=== PATIENT | female | born 1930 | race Caucasian/White ===

== ENCOUNTER 2016-08-03 03:23 | Observation (INO) ==
[2016-08-03] MEDS ORDERED: 0.9 % Sodium Chloride 1,000 ML IVC ONE (03:34)
[2016-08-03 04:08] LABS: Basophils % 0.3 %; Eosinophils % 0.1 %; Hematocrit 34.7 % (35.3-44.9); Hemoglobin 11.6 g/dL (11.5-15.4); Immature Granulocytes % 0.4 % (0-4); Mean Corpuscular HGB Conc 33.4 g/dL (31.6-35.5); Mean Corpuscular Hemoglobin 30.2 pg (28.0-33.3); Mean Corpuscular Volume 90.4 fL (83.0-100.0); Mean Platelet Volume 10.1 fL (9.4-12.4); Monocytes # 0.7 K/mcL (0.0-1.3); Monocytes % 9.2 %; Neutrophils # 5.9 K/mcL (1.6-8.9); Platelet Count 159 K/mcL (140-400); Red Blood Count 3.84 M/mcL (3.82-4.97); Red Cell Distribution Width 14.6 % (11.5-14.5)
[2016-08-03 04:13] LABS: INR 1.1; Prothrombin Time 11.4 Seconds (9.4-12.1)
--- NOTE | 2016-08-03 04:14 | Emergency Department Note ---
Disposition Clinical Impression: Lower gastrointestinal hemorrhage, Colitis, acute Disposition: Admitted As Inpatient Condition: Good Forms: ED Satisfaction Letter GI Bleed HPI - General Chief complaint: ED GI Bleed Stated complaint: rectal bleeding Time Seen by Provider: 08/03/16 03:29 Source: patient Mode of arrival: private vehicle Limitations: no limitations Nursing Notes Reviewed: Yes Vital Signs Reviewed: Yes - History of Present Illness Pt Subjective Complaint: gross hematochezia Onset (ago): hour(s) (since approximately 7 pm) Consistency: constant Severity: mild, moderate Improves with: rest Worsens with: movement Context: rectal trauma ("had a very large, very hard, painful bowel movement this evening and then the bleeding started.") Associated symptoms: Reports: abdominal pain. Denies: nausea, vomiting, epistaxis, fever, chills, headaches, loss of appetite, malaise, easy bruising, rash, other bleeding source, shortness of breath, syncope/near-syncope, weakness - Related Data Previous Rx's Medication Instructions Recorded Ibuprofen [Motrin] 800 mg PO Q8HR #30 tablet 03/09/16 Allergies Allergy/AdvReac Type Severity Reaction Status Date / Time Penicillins Allergy Hives Verified 08/03/16 03:24 All systems ED: reviewed and negative except as stated. Constitutional: Denies: fever, chills, weakness Cardiovascular: Denies: chest pain, palpitations, dyspnea on exertion Gastrointestinal: Reports: as per HPI, abdominal pain, constipation ("all week, until this evening" Was given Rx for Lactulose last Thursday. Used it daily all week.). Denies: nausea, vomiting, diarrhea Genitourinary: Reports: frequency. Denies: urgency, dysuria, hematuria Musculoskeletal: Denies: back pain Integumentary: Denies: rash Neurological: Denies: headache, weakness, numbness, paresthesias Hematological/Lymphatic: Denies: easy bleeding, easy bruising Past Medical History - Past Medical History Attestation: Yes The following information was validated with the patient. Source: patient Medical history: Reports: hyperlipidemia, hypertension, other Surgical history: Reports: hip replacement Psychiatric history: Reports: no psych history - Social History Smoking Status: Never smoker Smokeless Tobacco Status: No Alcohol use: Reports: none Drug use: Reports: none Physical Exam - General Limitations: no limitations General appearance: alert, in no apparent distress - Head Head exam: atraumatic, normocephalic, normal inspection - Eye Eye exam: Present: normal appearance, PERRL. Absent: scleral icterus, conjunctival injection, periorbital swelling - ENT ENT exam: mucous membranes moist - Neck Neck exam: Present: normal inspection, trachea midline - Chest Chest inspection: Present: normal inspection - Respiratory Respiratory exam: Present: normal lung sounds bilaterally. Absent: respiratory distress - Cardiovascular Cardiovascular exam: Present: regular rate - Abdominal Exam Abdominal exam: Present: soft, tenderness, hyperactive bowel sounds. Absent: distention, guarding, rebound, rigidity, organomegaly, mass, pulsatile mass Abdominal tenderness: Present: LLQ (el-umbilical), epigastrium - Rectal Exam Computer Assistant present during exam: Yes Rectal exam: Present: hemorrhoids (one, small non-tender, external hemorrhoid), other (BRBPR, no stool) - Extremities Exam Extremities exam: Present: normal inspection, full ROM. Absent: pedal edema - Expanded Lower Extremity Exam Gait: observed and normal - Neurological Exam Neurological exam: Present: alert, oriented X3, CN II-XII intact, normal gait - Psychiatric Psychiatric exam: Present: normal affect, normal mood - Skin Skin exam: Present: warm, dry, intact, normal color Course Course Narrative: patient presents for evaluation of rectal bleeding that began around 19:00 Thursday evening after having a bowel movement. She had been constipated all week and took Lactulose every day. She describes the bowel movement as painful, hard, and large. She thought that the bleeding would stop so she waited a while before coming to the hospital. She states that she was up moving around a lot, doing laundry and other things. When she get ready to go to bed she realized that she was still bleeding so she decided to come in. She has some abd pain and tenderness - primarily el-umbilical. Vitals are good - BP a little high, O2 sat 94% on room air. Will check labs and get CT of abdomen / pelvis. Patient not on any anticoagulants. CT has been read by Radiologist as Colitis. Inflammatory or infectious felt to be more likely than ischemic. Clinically she does not appear to have ischemic colitis. She is resting comfortably, declines pain meds and is minimally tender. She will be admitted for further evaluation. Hospitalist paged. Patient accepted for admission. Cipro and Flagyl recommended. Vital Signs Temperature 97.6 F 08/03/16 03:24 Pulse Rate 98 08/03/16 03:24 Respiratory Rate 20 08/03/16 03:24 Blood Pressure 160/98 08/03/16 03:24 O2 Sat by Pulse Oximetry 94 L 08/03/16 03:24 Temperature 97.6 F 08/03/16 03:24 Pulse Rate 98 08/03/16 03:24 Respiratory Rate 20 08/03/16 03:24 Blood Pressure 160/98 08/03/16 03:24 O2 Sat by Pulse Oximetry 94 L 08/03/16 03:24 Oxygen Delivery Oxygen Delivery Room Air GI Bleed - Medical Records Medical records reviewed: Yes I reviewed the patient's medical records. - Lab Data Lab results reviewed: Yes I reviewed the patient's lab results. Lab results narrative: Laboratory Last Values WBC 7.7 K/mcL (4.3-11.1) 08/03/16 03:45 RBC 3.84 M/mcL (3.82-4.97) 08/03/16 03:45 Hgb 11.6 g/dL (11.5-15.4) 08/03/16 03:45 Hct 34.7 % (35.3-44.9) L 08/03/16 03:45 MCV 90.4 fL (83.0-100.0) 08/03/16 03:45 MCH 30.2 pg (28.0-33.3) 08/03/16 03:45 MCHC 33.4 g/dL (31.6-35.5) 08/03/16 03:45 RDW 14.6 % (11.5-14.5) H 08/03/16 03:45 Plt Count 159 K/mcL (140-400) 08/03/16 03:45 MPV 10.1 fL (9.4-12.4) 08/03/16 03:45 Immature Gran % 0.4 % (0-4) 08/03/16 03:45 Seg Neutrophils % 77.0 % 08/03/16 03:45 Lymphocytes % 13.0 % 08/03/16 03:45 Monocytes % 9.2 % 08/03/16 03:45 Eosinophils % 0.1 % 08/03/16 03:45 Basophils % 0.3 % 08/03/16 03:45 Neutrophils # 5.9 K/mcL (1.6-8.9) 08/03/16 03:45 Lymphocytes # 1.0 K/mcL (0.6-4.6) 08/03/16 03:45 Monocytes # 0.7 K/mcL (0.0-1.3) 08/03/16 03:45 Eosinophils # 0.0 K/mcL (0.0-0.6) 08/03/16 03:45 Basophils # 0.0 K/mcL (0.0-0.2) 08/03/16 03:45 PT 11.4 Seconds (9.4-12.1) 08/03/16 03:45 INR 1.1 08/03/16 03:45 APTT 26.9 Seconds (26.0-36.0) 08/03/16 03:45 Sodium 138 mEq/L (136-145) 08/03/16 03:45 Potassium 3.4 mEq/L (3.5-4.5) L 08/03/16 03:45 Chloride 102 mEq/L (98-109) 08/03/16 03:45 Carbon Dioxide 23 mEq/L (19-29) 08/03/16 03:45 BUN 19 mg/dL (7-20) 08/03/16 03:45 Creatinine 1.07 mg/dL (0.57-1.11) 08/03/16 03:45 Est GFR ( Amer) 59 (> 60) L 08/03/16 03:45 Est GFR (Non-Af Amer) 48 (> 60) L 08/03/16 03:45 BUN/Creatinine Ratio 18 (6-26) 08/03/16 03:45 Glucose 124 mg/dL (70-99) H 08/03/16 03:45 Calculated Osmolality 290 (280-300) 08/03/16 03:45 Calcium 9.6 mg/dL (8.6-10.8) 08/03/16 03:45 Total Bilirubin 0.6 mg/dL (0.2-1.2) 08/03/16 03:45 AST 19 Units/L (5-34) 08/03/16 03:45 ALT 9 Units/L (0-55) 08/03/16 03:45 Alkaline Phosphatase 70 Units/L (38-126) 08/03/16 03:45 Serum Total Protein 6.7 g/dL (6.0-8.3) 08/03/16 03:45 Albumin 3.7 g/dL (3.5-5.0) 08/03/16 03:45 Globulin 3.0 g/dL (2.4-3.5) 08/03/16 03:45 Albumin/Globulin Ratio 1.2 (1.1-2.2) 08/03/16 03:45 Blood Type O POSITIVE 08/03/16 03:45 Antibody Screen NEGATIVE 08/03/16 03:45 Result diagrams: 08/03/16 03:45 Lab Results 08/03/16 Range/Units 03:45 WBC 7.7 (4.3-11.1) K/mcL RBC 3.84 (3.82-4.97) M/mcL Hgb 11.6 (11.5-15.4) g/dL Hct 34.7 L (35.3-44.9) % MCV 90.4 (83.0-100.0) fL MCH 30.2 (28.0-33.3) pg MCHC 33.4 (31.6-35.5) g/dL RDW 14.6 H (11.5-14.5) % Plt Count 159 (140-400) K/mcL MPV 10.1 (9.4-12.4) fL Immature Gran % 0.4 (0-4) % Seg Neutrophils % 77.0 % Lymphocytes % 13.0 % Monocytes % 9.2 % Eosinophils % 0.1 % Basophils % 0.3 % Neutrophils # 5.9 (1.6-8.9) K/mcL Lymphocytes # 1.0 (0.6-4.6) K/mcL Monocytes # 0.7 (0.0-1.3) K/mcL Eosinophils # 0.0 (0.0-0.6) K/mcL Basophils # 0.0 (0.0-0.2) K/mcL - Radiology Data Radiology results reviewed: Yes I reviewed the patient's radiology results. Abdomen/Pelvis CT 08/03/16 04:12 IMPRESSION: 1. Severe mucosal thickening involving a long segment of left colon, evidence of colitis. Infectious or inflammatory etiologies would be favored. Ischemic colitis unlikely given lack of significant atherosclerotic change. 2. Advanced diverticulosis in the sigmoid colon with no focal inflammation to suggest diverticulitis. D/ / Jacek Schaefer MD / Jacek Schaefer MD Interpreting Provider: Jacek Schaefer MD
[2016-08-03 04:16] LABS: Activated Partial Thrombo Time 26.9 Seconds (26.0-36.0)
[2016-08-03 04:22] LABS: Albumin 3.7 g/dL (3.5-5.0); Albumin/Globulin Ratio 1.2 (1.1-2.2); Bilirubin,Total 0.6 mg/dL (0.2-1.2); Calcium 9.6 mg/dL (8.6-10.8); Potassium 3.4 mEq/L (3.5-4.5); Total Protein 6.7 g/dL (6.0-8.3)
--- NOTE | 2016-08-03 04:36 | Emergency Department Note ---
Disposition Clinical Impression: Lower gastrointestinal hemorrhage, Colitis, acute Disposition: Admitted As Inpatient General Adult HPI - General Chief complaint: ED GI Bleed Stated complaint: rectal bleeding Time Seen by Provider: 08/03/16 03:29 Source: patient Mode of arrival: private vehicle Limitations: no limitations - History of Present Illness Pain Scale: 3 - Related Data Home Medications Medication Instructions Recorded Confirmed Aspirin [Lo-Dose Aspirin EC] 81 mg PO DAILY 08/03/16 08/03/16 Cholecalciferol (D-3) [Vitamin D] 1,000 unit PO DAILY 08/03/16 08/03/16 Ibuprofen [Motrin] 800 mg PO Q8HR PRN 08/03/16 08/03/16 Lisinopril-HCTZ 20-12.5 [Prinzide 1 each PO DAILY 08/03/16 08/03/16 20-12.5] Simvastatin [Zocor] 20 mg PO DAILY 08/03/16 08/03/16 Vit A/C/E AC/Znox/Cupric Oxide 1 each PO DAILY 08/03/16 08/03/16 [Eye Vitamin-Minerals Tablet] Allergies Allergy/AdvReac Type Severity Reaction Status Date / Time Penicillins Allergy Hives Verified 08/03/16 03:24 Constitutional: Denies: fever, chills, weakness Cardiovascular: Denies: chest pain, palpitations, dyspnea on exertion Gastrointestinal: Reports: as per HPI, abdominal pain, constipation ("all week, until this evening" Was given Rx for Lactulose last Thursday. Used it daily all week.). Denies: nausea, vomiting, diarrhea Genitourinary: Reports: frequency. Denies: urgency, dysuria, hematuria Musculoskeletal: Denies: back pain Integumentary: Denies: rash Neurological: Denies: headache, weakness, numbness, paresthesias Hematological/Lymphatic: Denies: easy bleeding, easy bruising Past Medical History - Past Medical History Medical history: Reports: hyperlipidemia, hypertension, other Surgical history: Reports: hip replacement Psychiatric history: Reports: no psych history - Social History Smoking Status: Never smoker Smokeless Tobacco Status: No Alcohol use: Reports: none Drug use: Reports: none Physical Exam - General Limitations: no limitations General appearance: alert Course Vital Signs Temperature 97.6 F 08/03/16 03:24 Pulse Rate 98 08/03/16 03:24 Respiratory Rate 20 08/03/16 03:24 Blood Pressure 160/98 08/03/16 03:24 O2 Sat by Pulse Oximetry 94 L 08/03/16 03:24 Temperature 97.6 F 08/03/16 03:24 Pulse Rate 98 08/03/16 03:24 Respiratory Rate 16 08/03/16 06:29 Blood Pressure 148/76 08/03/16 06:29 O2 Sat by Pulse Oximetry 94 L 08/03/16 03:24 Oxygen Delivery Oxygen Delivery Room Air Medical Decision Making - Lab Data Result diagrams: 08/03/16 03:45 08/03/16 03:45 Lab Results 08/03/16 08/03/16 08/03/16 Range/Units 03:45 03:45 03:45 WBC 7.7 (4.3-11.1) K/mcL RBC 3.84 (3.82-4.97) M/mcL Hgb 11.6 (11.5-15.4) g/dL Hct 34.7 L (35.3-44.9) % MCV 90.4 (83.0-100.0) fL MCH 30.2 (28.0-33.3) pg MCHC 33.4 (31.6-35.5) g/dL RDW 14.6 H (11.5-14.5) % Plt Count 159 (140-400) K/mcL MPV 10.1 (9.4-12.4) fL Immature Gran % 0.4 (0-4) % Seg Neutrophils % 77.0 % Lymphocytes % 13.0 % Monocytes % 9.2 % Eosinophils % 0.1 % Basophils % 0.3 % Neutrophils # 5.9 (1.6-8.9) K/mcL Lymphocytes # 1.0 (0.6-4.6) K/mcL Monocytes # 0.7 (0.0-1.3) K/mcL Eosinophils # 0.0 (0.0-0.6) K/mcL Basophils # 0.0 (0.0-0.2) K/mcL PT 11.4 (9.4-12.1) Seconds INR 1.1 APTT 26.9 (26.0-36.0) Seconds Sodium 138 (136-145) mEq/L Potassium 3.4 L (3.5-4.5) mEq/L Chloride 102 (98-109) mEq/L Carbon Dioxide 23 (19-29) mEq/L BUN 19 (7-20) mg/dL Creatinine 1.07 (0.57-1.11) mg/dL Est GFR ( Amer) 59 L (> 60) Est GFR (Non-Af Amer) 48 L (> 60) BUN/Creatinine Ratio 18 (6-26) Glucose 124 H (70-99) mg/dL Calculated Osmolality 290 (280-300) Calcium 9.6 (8.6-10.8) mg/dL Total Bilirubin 0.6 (0.2-1.2) mg/dL AST 19 (5-34) Units/L ALT 9 (0-55) Units/L Alkaline Phosphatase 70 (38-126) Units/L Serum Total Protein 6.7 (6.0-8.3) g/dL Albumin 3.7 (3.5-5.0) g/dL Globulin 3.0 (2.4-3.5) g/dL Albumin/Globulin Ratio 1.2 (1.1-2.2) Blood Type Antibody Screen 08/03/16 Range/Units 03:45 WBC (4.3-11.1) K/mcL RBC (3.82-4.97) M/mcL Hgb (11.5-15.4) g/dL Hct (35.3-44.9) % MCV (83.0-100.0) fL MCH (28.0-33.3) pg MCHC (31.6-35.5) g/dL RDW (11.5-14.5) % Plt Count (140-400) K/mcL MPV (9.4-12.4) fL Immature Gran % (0-4) % Seg Neutrophils % % Lymphocytes % % Monocytes % % Eosinophils % % Basophils % % Neutrophils # (1.6-8.9) K/mcL Lymphocytes # (0.6-4.6) K/mcL Monocytes # (0.0-1.3) K/mcL Eosinophils # (0.0-0.6) K/mcL Basophils # (0.0-0.2) K/mcL PT (9.4-12.1) Seconds INR APTT (26.0-36.0) Seconds Sodium (136-145) mEq/L Potassium (3.5-4.5) mEq/L Chloride (98-109) mEq/L Carbon Dioxide (19-29) mEq/L BUN (7-20) mg/dL Creatinine (0.57-1.11) mg/dL Est GFR ( Amer) (> 60) Est GFR (Non-Af Amer) (> 60) BUN/Creatinine Ratio (6-26) Glucose (70-99) mg/dL Calculated Osmolality (280-300) Calcium (8.6-10.8) mg/dL Total Bilirubin (0.2-1.2) mg/dL AST (5-34) Units/L ALT (0-55) Units/L Alkaline Phosphatase (38-126) Units/L Serum Total Protein (6.0-8.3) g/dL Albumin (3.5-5.0) g/dL Globulin (2.4-3.5) g/dL Albumin/Globulin Ratio (1.1-2.2) Blood Type O POSITIVE Antibody Screen NEGATIVE Attestation Statement - Attestation Attestation: I examined this patient and my medical decision-making was reviewed with the PHARMACIST ASSISTANT/PA/Advanced Practice Nurse/Resident Physician. I agree with the documented findings, disposition and treatment plan as described except to the extent set forth below. [id number] time provided in conjunction with the mid- level provider Brenna Patient presents to the emergency department complaining of bright red blood from her rectum after a large painful bowel movement. The patient has been constipated and has been taking lactulose. Upon exam, the patient is resting comfortably and denies symptoms. CT scan ordered by Brenna. Labs reviewed by me. Patient does not take blood thinners
[2016-08-03] MEDS ORDERED: MetroNIDAZOLE 500 MG/100 ML 500 MG/100 ML BAG IVPB ONE (05:56)
[2016-08-03] MEDS ORDERED: *HR* Morphine 2 MG/ML SYRINGE IVP PRN (06:56)
[2016-08-03] MEDS ORDERED: SODIUM CHLORIDE/NAHCO3/KCL/PEG 4,000 ML SOLN.RECON PO ONE (06:57)
[2016-08-03] MEDS ORDERED: Acetaminophen 325 MG TABLET PO PRN (06:57)
[2016-08-03] MEDS ORDERED: Naloxone 0.4 MG/ML INJ IVP PRN (06:57)
--- NOTE | 2016-08-03 07:04 | Internal Med History&Physical ---
Date of Encounter: 08/03/16 Time of Encounter: 06:30 Internal Medicine - H&P: HPI Chief complaint: BRIGHT RED BLOOD PER RECTUM AND CENTRAL ABDOMINAL PAIN Admitted From: Emergency Dept Plans for Post Hospital Care: Home History of present illness: Ms. Prince is a 86 year old female patient with medical history significant for hypertension and hyperlipidemia, diverticulosis, well informed, last coloscopy in 3 years that was reported normal, present with 1 day hostory of mid to lower abdominal pain and bright red blood per rectum. She had been prescribed laxatives (lactulose) by her PCP and had used the same the past couple of days. She developed abdominal cramping followed by some rectal spotting yesternight, she though it will stop but it continued this morning, hence she presented. hE STOOL WAS SOFT YESTERDAY. There was associated tenemus, nO MELENA , stool was soft, non-mucoid, NO NAUSEA OR VOMITING. nO RCECENT UNINTENTIONAL WEIGHT LOSS, NO PERSON OR FAMILY HISTORY OF GI malignancy. Her last colonoscopy was done 3 years ago, she reports it was normal, she was prescribed high fiber diet because of the finding of diverticulosis. She has no other associated symptoms. Ho history of PVD or artherosclerosis. She is FULL CODE PER DISCUSSION. sHE NIMINATES HER BROTHER: Jostin Stevens ([phone]) HER nok/ poa. sHE DOES NOT WANT TO BE MAINTAINED in a prolonged vegetative state. Source: patient Medical history: Reports: hyperlipidemia, hypertension, other Surgical history: Reports: hip replacement Psychiatric history: Reports: no psych history Smoking Status: Never smoker Smokeless Tobacco Status: No Alcohol use: Reports: none Drug use: Reports: none Family history: No family history of GI malignancy ROS: A 10-point ROS was performed, positives and relevant negatives are detailed , system-symptom not mentioned assumed negative unless otherwise stated. Vital Signs Temperature 97.6 F 08/03/16 03:24 Pulse Rate 98 08/03/16 03:24 Respiratory Rate 20 08/03/16 03:24 Blood Pressure 160/98 08/03/16 03:24 O2 Sat by Pulse Oximetry 94 L 08/03/16 03:24 Temperature 97.6 F 08/03/16 03:24 Pulse Rate 98 08/03/16 03:24 Respiratory Rate 20 08/03/16 03:24 Blood Pressure 160/98 01/29/17 03:24 O2 Sat by Pulse Oximetry 94 L 08/03/16 03:24 O/E: not in distress, not ill looking, not lethargic HEENT: Not pale, anicteric, afebrile, acyanotic, no JVD Chest: CTAB Heart/CVS: RRR, HS1/2, no murmur Abdomen: soft, vague central periumbilical and suprapubic tenderness, no guarding or rebound tenderness, no masses POLICY CHECKER: AAO x 3, no gross focal neurological deficits, moves all limbs spontaneously. Muscle power=5/5 in all extremities Skin: no active skin lesion Extremities: no normal pedal pulses, no calf tenderness, no pedal edema Laboratory Last Values WBC 7.7 K/mcL (4.3-11.1) 08/03/16 03:45 RBC 3.84 M/mcL (3.82-4.97) 08/03/16 03:45 Hgb 11.6 g/dL (11.5-15.4) 08/03/16 03:45 Hct 34.7 % (35.3-44.9) L 08/03/16 03:45 MCV 90.4 fL (83.0-100.0) 08/03/16 03:45 MCH 30.2 pg (28.0-33.3) 08/03/16 03:45 MCHC 33.4 g/dL (31.6-35.5) 08/03/16 03:45 RDW 14.6 % (11.5-14.5) H 08/03/16 03:45 Plt Count 159 K/mcL (140-400) 08/03/16 03:45 MPV 10.1 fL (9.4-12.4) 08/03/16 03:45 Immature Gran % 0.4 % (0-4) 08/03/16 03:45 Seg Neutrophils % 77.0 % 08/03/16 03:45 Lymphocytes % 13.0 % 08/03/16 03:45 Monocytes % 9.2 % 08/03/16 03:45 Eosinophils % 0.1 % 08/03/16 03:45 Basophils % 0.3 % 08/03/16 03:45 Neutrophils # 5.9 K/mcL (1.6-8.9) 08/03/16 03:45 Lymphocytes # 1.0 K/mcL (0.6-4.6) 08/03/16 03:45 Monocytes # 0.7 K/mcL (0.0-1.3) 08/03/16 03:45 Eosinophils # 0.0 K/mcL (0.0-0.6) 08/03/16 03:45 Basophils # 0.0 K/mcL (0.0-0.2) 08/03/16 03:45 PT 11.4 Seconds (9.4-12.1) 08/03/16 03:45 INR 1.1 08/03/16 03:45 APTT 26.9 Seconds (26.0-36.0) 08/03/16 03:45 Sodium 138 mEq/L (136-145) 08/03/16 03:45 Potassium 3.4 mEq/L (3.5-4.5) L 08/03/16 03:45 Chloride 102 mEq/L (98-109) 08/03/16 03:45 Carbon Dioxide 23 mEq/L (19-29) 08/03/16 03:45 BUN 19 mg/dL (7-20) 08/03/16 03:45 Creatinine 1.07 mg/dL (0.57-1.11) 08/03/16 03:45 Est GFR ( Amer) 59 (> 60) L 08/03/16 03:45 Est GFR (Non-Af Amer) 48 (> 60) L 08/03/16 03:45 BUN/Creatinine Ratio 18 (6-26) 08/03/16 03:45 Glucose 124 mg/dL (70-99) H 08/03/16 03:45 Calculated Osmolality 290 (280-300) 08/03/16 03:45 Calcium 9.6 mg/dL (8.6-10.8) 08/03/16 03:45 Total Bilirubin 0.6 mg/dL (0.2-1.2) 08/03/16 03:45 AST 19 Units/L (5-34) 08/03/16 03:45 ALT 9 Units/L (0-55) 08/03/16 03:45 Alkaline Phosphatase 70 Units/L (38-126) 08/03/16 03:45 Serum Total Protein 6.7 g/dL (6.0-8.3) 08/03/16 03:45 Albumin 3.7 g/dL (3.5-5.0) 08/03/16 03:45 Globulin 3.0 g/dL (2.4-3.5) 08/03/16 03:45 Albumin/Globulin Ratio 1.2 (1.1-2.2) 08/03/16 03:45 Blood Type O POSITIVE 08/03/16 03:45 Antibody Screen NEGATIVE 08/03/16 03:45 Result diagrams: 08/03/16 03:45 Lab Results 08/03/16 Range/Units 03:45 WBC 7.7 (4.3-11.1) K/mcL RBC 3.84 (3.82-4.97) M/mcL Hgb 11.6 (11.5-15.4) g/dL Hct 34.7 L (35.3-44.9) % MCV 90.4 (83.0-100.0) fL MCH 30.2 (28.0-33.3) pg MCHC 33.4 (31.6-35.5) g/dL RDW 14.6 H (11.5-14.5) % Plt Count 159 (140-400) K/mcL MPV 10.1 (9.4-12.4) fL Immature Gran % 0.4 (0-4) % Seg Neutrophils % 77.0 % Lymphocytes % 13.0 % Monocytes % 9.2 % Eosinophils % 0.1 % Basophils % 0.3 % Neutrophils # 5.9 (1.6-8.9) K/mcL Lymphocytes # 1.0 (0.6-4.6) K/mcL Monocytes # 0.7 (0.0-1.3) K/mcL Eosinophils # 0.0 (0.0-0.6) K/mcL Basophils # 0.0 (0.0-0.2) K/mcL Abdomen/Pelvis CT 08/03/16 04:12 Severe mucosal thickening involving a long segment of left colon, evidence of colitis. Infectious or inflammatory etiologies would be favored. Ischemic colitis unlikely given lack of significant atherosclerotic change. Advanced diverticulosis in the sigmoid colon with no focal inflammation to suggest diverticulitis. IMP Stercoral colitis, related to constipation and or use of laxative Lower GI bleeding related to stercoral colitis, I cannot not exclude stercoral ulcer Chronic morbidities HTN HLD PLAN Admit to observation GoLytely 2000 mls IVF NS @ 50 Morphine IV for pain control Hold aspirin Trend HH Continue other medications of chronic morbidities JEWEL FOR DVT prophylaxis Protonix 40mg po QD FOR GI prophylaxis I discussed my findings and assessment with the patient, she verbalized understanding and is agreeable to admission. She had colonoscopy 3 years ago which she reports as normal. She will nee interval colonoscopy when the acute phase resolves. This appears related to steroral colitis, I cannot not exclude co-existent stercral ulcer. GI gas been consulted. We will trend her HH. Past Med Surg Social Fam HX - Past Medical History Medical history: hyperlipidemia, hypertension, other Psychiatric history: no psych history - Past Surgical History Surgical History: hip replacement - Social History Smoking Status: Never smoker Smokeless Tobacco Status: No Alcohol use: none Drug use: none - Family History Mother History Unknown: Yes Adopted: No Living Status: Hx Family Cardiac Disorders: Yes (HTN) Hx Family Respiratory Disorders: No Hx Family Cancer: No Hx Family GI Disorders: No Hx Family Genitourinary Disorders: No Hx Family Endocrine Disorder: No Hx Family Musculoskeletal Disorders: No Hx Family Neuromuscular Disorders: No Hx Family Neurologic Disorders: No Hx Family HEENT Disorders: No Hx Family Autoimmune Disorders: No Hx Family Reproductive Disorders: No Hx Family Psychosocial Disorders: No Hx Family Medical Disorders: No Internal Medicine - H&P: Meds Aspirin [Lo-Dose Aspirin EC] 81 mg PO DAILY 08/03/16 [History] Cholecalciferol (D-3) [Vitamin D] 1,000 unit PO DAILY 08/03/16 [History] Ibuprofen [Motrin] 800 mg PO Q8HR PRN 08/03/16 [History] Lisinopril-HCTZ 20-12.5 [Prinzide 20-12.5] 1 each PO DAILY 08/03/16 [History] Simvastatin [Zocor] 20 mg PO DAILY 08/03/16 [History] Vit A/C/E AC/Znox/Cupric Oxide [Eye Vitamin-Minerals Tablet] 1 each PO DAILY [History] Allergies Penicillins Allergy (Verified 08/03/16 03:24) Hives All Systems PM: A 10-system review of systems was performed and is negative for pertinent findings except as documented above in the HPI. - Constitutional Vitals: Temp Pulse Resp BP Pulse Ox 97.5 F L 88 16 163/73 99 08/03/16 06:51 08/03/16 06:51 08/03/16 06:51 08/03/16 06:51 08/03/16 06:51 Internal Med - H&P Results - Labs CBC & Chem 7: 08/03/16 03:45 08/03/16 03:45 - VTE Reasons for not Prescribing Prophylaxis: Treatment not Indicated - Low risk for VTE
[2016-08-03] MEDS: Lisinopril-HCTZ 20-12.5mg TABLET PO SCH (09:11)
[2016-08-03] MEDS: Cholecalciferol (D-3) 1,000 UNIT TABLET PO SCH (09:11)
[2016-08-03] MEDS: [UNRECOGNIZED DRUG - OTHER] PO SCH (09:12)
[2016-08-03] MEDS: MetroNIDAZOLE 500 MG/100 ML 500 MG/100 ML BAG IVPB SCH ×2 (09:12→15:44)
[2016-08-03 12:17] LABS: Hematocrit 30.6 % (35.3-44.9); Hemoglobin 10.3 g/dL (11.5-15.4)
--- NOTE | 2016-08-03 16:25 | Event Note ---
Date of Encounter: 08/03/16 Time of Encounter: 16:24 Admitted due to abdominal pain associated with lower GI bleeding. CT report reviewed. Continue with IV antibiotics, monitor hemoglobin. A consultation with gastroenterology has been requested. We will continue monitoring closely.
[2016-08-03] MEDS: Ondansetron 4 MG/2 ML VIAL IVP PRN (18:40)
[2016-08-04 00:41] LABS: Basophils % 0.4 %; Eosinophils % 0.3 %; Hematocrit 30.5 % (35.3-44.9); Hemoglobin 10.1 g/dL (11.5-15.4); Immature Granulocytes % 0.3 % (0-4); Immature Platelets 3.4 % (1.1-6.1); Lymphocytes # 1.3 K/mcL (0.6-4.6); Lymphocytes % 18.1 %; Mean Corpuscular HGB Conc 33.1 g/dL (31.6-35.5); Mean Corpuscular Hemoglobin 29.7 pg (28.0-33.3); Mean Corpuscular Volume 89.7 fL (83.0-100.0); Monocytes # 0.7 K/mcL (0.0-1.3); Monocytes % 9.4 %; Neutrophils # 5.1 K/mcL (1.6-8.9); Platelet Count 138 K/mcL (140-400); Red Cell Distribution Width 14.6 % (11.5-14.5); Segmented Neutrophils % 71.5 %
[2016-08-04 01:43] LABS: BUN/Creatinine Ratio 12 (6-26); Blood Urea Nitrogen 10 mg/dL (7-20); Calcium 8.4 mg/dL (8.6-10.8); Carbon Dioxide 25 mEq/L (19-29); Chloride 102 mEq/L (98-109); Glucose 94 mg/dL (70-99); Osmolality,Calculated 277 (280-300); Potassium 3.7 mEq/L (3.5-4.5); Sodium 134 mEq/L (136-145); eGFR For African Americans > 60 (> 60); eGFR For Non-African Americans > 60 (> 60)
[2016-08-04] MEDS: MetroNIDAZOLE 500 MG/100 ML 500 MG/100 ML BAG IVPB SCH ×3 (03:01→23:45)
[2016-08-04] MEDS: [UNRECOGNIZED DRUG - OTHER] PO SCH (09:36)
[2016-08-04] MEDS: Cholecalciferol (D-3) 1,000 UNIT TABLET PO SCH (09:47)
[2016-08-04] MEDS: Lisinopril-HCTZ 20-12.5mg TABLET PO SCH (09:47)
--- NOTE | 2016-08-04 11:52 | Gastroenterology Consult Note ---
<Surinder Viveros - Last Filed: 08/04/16 11:50> Date of Encounter: 08/04/16 Time of Encounter: 10:45 - Assessment and plan (1) Constipation Current Visit: Yes Status: Acute Assessment and plan: Recommend daily fiber supplement and Miralax up to BID PRN. Continue probiotics as outpatient. Qualifiers: Constipation type: unspecified constipation type Qualified Code(s): K59.00 - Constipation, unspecified (2) Colitis, acute Current Visit: Yes Status: Acute Assessment and plan: CT A/P severe mucosal thickening long segment of the left colon, infectious versus inflammatory, advanced diverticulosis sigmoid colon. Continue Cipro and Flagyl. (3) Lower gastrointestinal hemorrhage Current Visit: Yes Status: Acute Assessment and plan: Pt prepped with Golytely overnight, but she states she is not clear this AM. Plan for colonoscopy tomorrow. Clear liquid diet today, no red or purple. NPO at midnight. Use MiraLAX prep. If not clear by 6 AM, give 2 tap water enemas. - Time Spent With Patient Total time spent is greater than 50% in coordination of care (as documented) at patient's floor/unit and/or counseling patient: GI History of Present Illness - Data of Consult Patient: new to practice Consult date: 08/04/16 Requesting Physician: Mino Morales - Consult Narrative Reason for consult: Lower GI bleed History of present illness: Ms. Prince is a 86 year old female with PMHx of HTN, HLD, diverticulosis that presented with one day history of lower abdominal pain and BRBPR with wiping. She was using Lactulose as prescribed by her PCP for her chronic constipation. She denies melena, nausea, vomiting, no unintentional weight loss. CT A/P severe mucosal thickening long segment of the left colon, infectious versus inflammatory, advanced diverticulosis sigmoid colon. Pt states she was given bowel prep last night, but is not clear today. Procedures: Colonoscopy 02/21/[address] Cardona with severe diverticulosis , internal hemorrhoid, benign biopsies. EGD 05/26/2013 Dr. Cardona with large hiatus hernia, medium Schatzki ring, gastritis. NSAIDs: ASA Anticoagulation: None Past Med Surg Social Fam HX - Past Medical History Medical history: hyperlipidemia, hypertension, other Psychiatric history: no psych history - Past Surgical History Surgical History: hip replacement - Social History Smoking Status: Never smoker Smokeless Tobacco Status: No Alcohol use: none Drug use: none - Family History Mother History Unknown: Yes Adopted: No Living Status: Hx Family Cardiac Disorders: Yes (HTN) Hx Family Respiratory Disorders: No Hx Family Cancer: No Hx Family GI Disorders: No Hx Family Genitourinary Disorders: No Hx Family Endocrine Disorder: No Hx Family Musculoskeletal Disorders: No Hx Family Neuromuscular Disorders: No Hx Family Neurologic Disorders: No Hx Family HEENT Disorders: No Hx Family Autoimmune Disorders: No Hx Family Reproductive Disorders: No Hx Family Psychosocial Disorders: No Hx Family Medical Disorders: No - Gastrointestinal Gastrointestinal: Present: as per HPI - Constitutional Constitutional: as per HPI - EENT Eyes: as per HPI Ears: Present: as per HPI Nose, mouth and throat: Present: as per HPI - Cardiovascular Cardiovascular ROS: Present: as per HPI - Respiratory Respiratory IM: Present: as per HPI - Genitourinary Genitourinary: Absent: change in color, Urinary frequency - Neurological ROS Neurological GI: Present: as per HPI - Hematologic/Lymphatic Hematologic/Lymphatic pediatric: Present: as per HPI - Musculoskeletal Musculoskeletal ROS GI: Present: as per HPI - Integumentary Integumentary GI: Present: as per HPI - Psychiatric ROS Psychiatric GI: Present: as per HPI - Endocrine Endocrine IM: Present: as per HPI - Constitutional Vitals: Temp Pulse Resp BP Pulse Ox 98.5 F 52 16 117/66 94 L 08/04/16 10:40 08/04/16 10:40 08/04/16 10:40 08/04/16 10:40 08/04/16 10:40 General appearance: Present: cooperative, A&O X 3, no acute distress, answers questions appropriately - Head Head exam: Present: atraumatic, normocephalic - Eye Eye exam: Present: normal appearance, sclera anicteric - ENT ENT exam: Present: mucous membranes dry - Neck Neck exam general surgery: Present: normal inspection, trachea midline - Respiratory Respiratory exam: Present: CTAB. Absent: rales, rhonchi - Cardiovascular Cardiovascular exam: Present: RRR, +S1, +S2 - GI/Abdominal GI/Abdominal exam: Present: soft, no peritoneal signs. Absent: distended, firm , guarding, tenderness - Rectal Rectal exam: Present: deferred - Extremities Exam Extremities exam: Present: warm - Neurological Exam Neurological exam: Present: no focal deficits - Psychiatric Psychiatric exam: Present: normal affect, normal mood - Skin Skin exam: Present: dry, intact, normal color, warm Results - Labs CBC & Chem 7: 08/04/16 00:30 08/04/16 00:30 Labs: Last Result Calcium 8.4 mg/dL (8.6-10.8) L 08/04/16 00:30 Entire Visit Hgb 10.1 g/dL (11.5-15.4) L 08/04/16 00:30 Hct 30.5 % (35.3-44.9) L 08/04/16 00:30 PT 11.4 Seconds (9.4-12.1) 08/03/16 03:45 Total Bilirubin 0.6 mg/dL (0.2-1.2) 08/03/16 03:45 AST 19 Units/L (5-34) 08/03/16 03:45 ALT 9 Units/L (0-55) 08/03/16 03:45 - ABG ABG results: PT/INR, D-dimer PT 11.4 Seconds (9.4-12.1) 08/03/16 03:45 Consult Discharge Plan - Plan Referrals: Dwain Erazo MD [Primary Care Provider] - 08/13/16 1:15 pm <Teresa Mariee - Last Filed: 08/04/16 17:22> Date of Encounter: 08/04/16 Time of Encounter: 14:00 - Time Spent With Patient Total time spent is greater than 50% in coordination of care (as documented) at patient's floor/unit and/or counseling patient: GI History of Present Illness - Data of Consult Requesting Physician: Mino Morales - Consult Narrative History of present illness: Ms. Prince is a 86 year old female - Constitutional Vitals: Temp Pulse Resp BP Pulse Ox 97.3 F L 70 15 149/76 96 08/04/16 15:04 08/04/16 15:04 08/04/16 15:04 08/04/16 15:04 08/04/16 15:04 Results - Labs CBC & Chem 7: 08/04/16 12:14 08/04/16 00:30 Labs: Last Result Calcium 8.4 mg/dL (8.6-10.8) L 08/04/16 00:30 Entire Visit Hgb 10.1 g/dL (11.5-15.4) L 08/04/16 12:14 Hct 30.8 % (35.3-44.9) L 08/04/16 12:14 PT 11.4 Seconds (9.4-12.1) 08/03/16 03:45 Total Bilirubin 0.6 mg/dL (0.2-1.2) 08/03/16 03:45 AST 19 Units/L (5-34) 08/03/16 03:45 ALT 9 Units/L (0-55) 08/03/16 03:45 - ABG ABG results: PT/INR, D-dimer PT 11.4 Seconds (9.4-12.1) 08/03/16 03:45 - Attending Attestation I examined this patient and my medical decision-making was reviewed with the FULFILLMENT ASSOCIATE/PA/Advanced Practice Nurse/Resident Physician. I agree with the documented findings, disposition and treatment plan as described except to the extent set forth below.
[2016-08-04 12:25] LABS: Hematocrit 30.8 % (35.3-44.9); Hemoglobin 10.1 g/dL (11.5-15.4)
--- NOTE | 2016-08-04 15:52 | Internal Med Progress Note ---
<Favian Peng - Last Filed: 08/04/16 16:06> Date of Encounter: 08/04/16 Time of Encounter: 08:00 - Assessment and plan (1) Colitis, acute Current Visit: Yes Status: Acute Assessment and plan: Mrs. Prince 78-year-old female, was admitted with abdominal pain and blood per rectum. CT of the abdomen demonstrates severe mucosal thickening involving a long segment left colon with evidence of colitis. There is concern for infectious etiology. She also has known diverticulosis but no focal inflammation to suggest diverticulitis. No leukocytosis, she has remained afebrile, regular rate and rhythm, no acute respiratory distress, oxygenating greater than 90% on room air. Abdominal pain improved. Plan: - At this time will discontinue antibiotics as there is low suspicion for infectious etiology. (2) Lower gastrointestinal hemorrhage Current Visit: Yes Status: Acute Assessment and plan: Patient had blood per rectum, bright red. This is associated with some abdominal tenderness. She mentions she had a colonoscopy done 3 years ago at an outside hospital, and denies any acute findings. She is scheduled for a colonoscopy tomorrow. She is to be NPO over night and complete bowel prep. GI to perform colonoscopy. (3) Constipation Current Visit: Yes Status: Acute Assessment and plan: History of constipation. Patient is not on a bowel regimen at home. May need when necessary stool softener at time of discharge. Qualifiers: Constipation type: unspecified constipation type Qualified Code(s): K59.00 - Constipation, unspecified (4) Hypertension Current Visit: Yes Status: Acute Assessment and plan: Patient has a history of hypertension, she has had elevated blood pressures in patient with systolic around 165. She is continued on her lisinopril-HCTZ. Qualifiers: Qualified Code(s): I10 - Essential (primary) hypertension (5) DVT prophylaxis Current Visit: Yes Status: Acute Assessment and plan: Holding anticoagulation at this time in the setting of GI bleed. Start SCDs. - Subjective Interval history: Mrs. Prince has been seen and evaluated patient bedside this morning. She is alert awake interactive and in no acute distress. She is up ambulating in the room without any assistance. She denies any headache, blurry vision, chest pain , shortness breath, palpitations, tach tachycardia, abdominal pain. She said that she had only tolerated roughly half of her bowel prep and currently is having yellow loose stools. She denies any blood currently but did have blood earlier during the prep. She said it was cassandra red blood. She feels better since prior to admission. She says she has dealt with constipation for a long time and that all of this started after passing a hard stool. - Constitutional Vitals: Temp Pulse Resp BP Pulse Ox 97.3 F L 70 15 149/76 96 08/04/16 15:04 08/04/16 15:04 08/04/16 15:04 08/04/16 15:04 08/04/16 15:04 General appearance: Present: cooperative, A&O X 3, pleasant, no acute distress - Head Head exam: Present: atraumatic, normocephalic - Eye Eye exam: Present: PERRL, conjuntiva pink, sclera anicteric Pupils: Present: PERRL - Neck Neck exam general surgery: Present: supple, trachea midline. Absent: lymphadenopathy - Respiratory Respiratory exam: Present: CTAB. Absent: accessory muscle use, rales, rhonchi, wheezes - Cardiovascular Cardiovascular exam: Present: RRR, +S1, +S2. Absent: diastolic murmur, gallop, rubs, systolic murmur - GI/Abdominal GI/Abdominal exam: Present: normal bowel sounds, soft, no peritoneal signs. Absent: distended, tenderness - Extremities Exam Extremities exam: Present: warm, radial pulses palpable and symetrical. Absent : calf tenderness, cyanotic, pedal edema - Neurological Exam Neurological exam: Present: alert, oriented X3, no focal deficits. Absent: pronater drift, facial droop, speech deficit - Skin Skin exam: Present: dry, intact Internal Medicine: Result - Labs CBC & Chem 7: 08/04/16 12:14 08/04/16 00:30 Labs: Short CBC 08/04/16 08/04/16 Range/Units 00:30 12:14 WBC 7.1 (4.3-11.1) K/mcL Hgb 10.1 L 10.1 L (11.5-15.4) g/dL Hct 30.5 L 30.8 L (35.3-44.9) % Plt Count 138 L (140-400) K/mcL Neutrophils # 5.1 (1.6-8.9) K/mcL BMP 08/04/16 00:30 Sodium 134 L Potassium 3.7 Chloride 102 Carbon Dioxide 25 BUN 10 Creatinine 0.84 Glucose 94 Calcium 8.4 L - ABG Interpretation ABG results: PT/INR, D-dimer PT 11.4 Seconds (9.4-12.1) 08/03/16 03:45 - VTE Reasons for not Prescribing Prophylaxis: Treatment not Indicated - Low risk for VTE Documentation of Mechanical Device: Graduated compression elastic hosiery Consult Discharge Plan - Plan Referrals: Dwain Erazo MD [Primary Care Provider] - 08/13/16 1:15 pm <Mino Morales - Last Filed: 08/04/16 18:17> Date of Encounter: 08/04/16 - Constitutional Vitals: Temp Pulse Resp BP Pulse Ox 97.3 F L 70 15 149/76 96 08/04/16 15:04 08/04/16 15:04 08/04/16 15:04 08/04/16 15:04 08/04/16 15:04 Internal Medicine: Result - Labs CBC & Chem 7: 08/04/16 12:14 08/04/16 00:30 Labs: Short CBC 08/04/16 08/04/16 Range/Units 00:30 12:14 WBC 7.1 (4.3-11.1) K/mcL Hgb 10.1 L 10.1 L (11.5-15.4) g/dL Hct 30.5 L 30.8 L (35.3-44.9) % Plt Count 138 L (140-400) K/mcL Neutrophils # 5.1 (1.6-8.9) K/mcL [facility] 08/04/16 00:30 Sodium 134 L Potassium 3.7 Chloride 102 Carbon Dioxide 25 BUN 10 Creatinine 0.84 Glucose 94 Calcium 8.4 L - ABG Interpretation ABG results: PT/INR, D-dimer PT 11.4 Seconds (9.4-12.1) 08/03/16 03:45 - Attending Attestation I agree with the physical examination findings, assessment and plan documented by the resident Dr. Villagran. . I examined the patient independently. Evaluation by gastroenterology has been requested. We will continue with current management with IV antibiotics and monitor hemoglobin. Continue with antibiotics.
[2016-08-04] MEDS ORDERED: Polyethylene Glycol 3350 255 GM POWDER PO ONE (17:00)
[2016-08-05] MEDS: Ondansetron 4 MG/2 ML VIAL IVP PRN (00:51)
[2016-08-05 05:22] LABS: Basophils % 0.3 %; Eosinophils # 0.1 K/mcL (0.0-0.6); Eosinophils % 1.6 %; Hematocrit 27.8 % (35.3-44.9); Hemoglobin 9.4 g/dL (11.5-15.4); Immature Granulocytes % 0.3 % (0-4); Lymphocytes # 1.5 K/mcL (0.6-4.6); Lymphocytes % 24.3 %; Mean Corpuscular HGB Conc 33.8 g/dL (31.6-35.5); Mean Corpuscular Hemoglobin 30.6 pg (28.0-33.3); Mean Corpuscular Volume 90.6 fL (83.0-100.0); Monocytes # 0.6 K/mcL (0.0-1.3); Neutrophils # 3.9 K/mcL (1.6-8.9); Platelet Count 136 K/mcL (140-400); Red Blood Count 3.07 M/mcL (3.82-4.97); Red Cell Distribution Width 14.6 % (11.5-14.5); Segmented Neutrophils % 63.5 %
[2016-08-05 05:38] LABS: BUN/Creatinine Ratio 8 (6-26); Blood Urea Nitrogen 6 mg/dL (7-20); Calcium 8.5 mg/dL (8.6-10.8); Carbon Dioxide 25 mEq/L (19-29); Chloride 103 mEq/L (98-109); Glucose 85 mg/dL (70-99); Osmolality,Calculated 281 (280-300); Potassium 2.8 mEq/L (3.5-4.5); Sodium 137 mEq/L (136-145); eGFR For African Americans > 60 (> 60); eGFR For Non-African Americans > 60 (> 60)
[2016-08-05] MEDS: Cholecalciferol (D-3) 1,000 UNIT TABLET PO SCH (08:02)
[2016-08-05] MEDS: Lisinopril-HCTZ 20-12.5mg TABLET PO SCH (08:02)
[2016-08-05] MEDS: MetroNIDAZOLE 500 MG/100 ML 500 MG/100 ML BAG IVPB SCH ×2 (08:02→17:13)
[2016-08-05 10:09] LABS: Bilirubin,Urine Negative (Negative); Blood,Urine Negative (Negative); Clarity,Urine Clear (Clear); Color,Urine Yellow (Yellow); Glucose,Urine (UA) Normal (Normal); Ketones,Urine Negative (Negative); Leukocyte Esterase,Urine Moderate (Negative); Nitrite,Urine Negative (Negative); Protein,Urine Negative (Neg-Trace); Specific Gravity,Urine 1.008 (1.010-1.025); Urobilinogen,Urine Normal (Normal)
[2016-08-05 10:11] LABS: Bacteria,Urine None Seen per hpf (None-Few); Hyaline Casts,Urine None Seen per lpf (None-Few); RBC,Urine 0-3 per hpf (0-3); Squamous Epithelial Cell,Urine Many per lpf (None-Few)
[2016-08-05] MEDS ORDERED: Potassium Chloride 40 MEQ, Lidocaine 1% 2 ML in D5% in Water 500 ML IVPB ONE (11:03)
[2016-08-05] MEDS: [UNRECOGNIZED DRUG - OTHER] PO SCH (11:25)
--- NOTE | 2016-08-05 11:53 | Internal Med Progress Note ---
<Favian Peng - Last Filed: 08/05/16 14:40> Date of Encounter: 08/05/16 Time of Encounter: 08:15 - Assessment and plan (1) Colitis, acute Current Visit: Yes Status: Acute Assessment and plan: Mrs. Prince 78-year-old female, was admitted with abdominal pain and blood per rectum. CT of the abdomen demonstrates severe mucosal thickening involving a long segment left colon with evidence of colitis. There is concern for infectious etiology. She also has known diverticulosis but no focal inflammation to suggest diverticulitis. Continues to have No leukocytosis, she has remains afebrile, regular rate and rhythm, no acute respiratory distress, oxygenating greater than 90% on room air. No abdominal pain Plan: - Continue to monitor patients symptoms. (2) Lower gastrointestinal hemorrhage Current Visit: Yes Status: Acute Assessment and plan: Patient had blood per rectum, bright red. This is associated with some abdominal tenderness. She mentions she had a colonoscopy done 3 years ago at an outside hospital, and denies any acute findings. She is scheduled for a colonoscopy today. She completed PO bowel prep last evening. Plan: - Awaiting colonoscopy results and GI recommendations - Continue GI coverage. (3) Constipation Current Visit: Yes Status: Acute Assessment and plan: History of constipation. Patient is not on a bowel regimen at home. May need when necessary stool softener at time of discharge. Qualifiers: Constipation type: unspecified constipation type Qualified Code(s): K59.00 - Constipation, unspecified (4) Hypertension Current Visit: Yes Status: Acute Assessment and plan: Patient has a history of hypertension, Blood pressures controlled. Renal function stable. Plan: Continue on her lisinopril-HCTZ. Qualifiers: Qualified Code(s): I10 - Essential (primary) hypertension (5) Hypokalemia Current Visit: Yes Status: Acute Assessment and plan: Hypokalemia in the setting of Bowel prep. Potassium 3.0 Plan: - Replace potassium with IVPB potassium. (6) DVT prophylaxis Current Visit: Yes Status: Acute Assessment and plan: Holding anticoagulation at this time in the setting of GI bleed. Start SCDs. - Subjective Interval history: Mrs. Prince has been seen and evaluated patient bedside this morning. She is alert awake interactive and in no acute distress. She is up ambulating in the room without any assistance. She denies any headache, blurry vision, chest pain , shortness breath, palpitations, tach tachycardia, abdominal pain. She has had no new symptoms over night. Abdominal tenderness has resolved. She is awaiting colonoscopy today. She has no further questions or concerns. - Constitutional Vitals: Temp Pulse Resp BP Pulse Ox 97.4 F L 73 16 146/84 99 08/05/16 10:48 08/05/16 10:48 08/05/16 10:48 08/05/16 10:48 08/05/16 10:48 General appearance: Present: cooperative, A&O X 3, pleasant, no acute distress - Head Head exam: Present: atraumatic, normocephalic - Eye Eye exam: Present: PERRL, conjuntiva pink, sclera anicteric Pupils: Present: PERRL - Neck Neck exam general surgery: Present: supple, trachea midline. Absent: lymphadenopathy - Respiratory Respiratory exam: Present: CTAB. Absent: accessory muscle use, rales, rhonchi, wheezes - Cardiovascular Cardiovascular exam: Present: RRR, +S1, +S2. Absent: diastolic murmur, gallop, rubs, systolic murmur - GI/Abdominal GI/Abdominal exam: Present: normal bowel sounds, soft, no peritoneal signs. Absent: distended, tenderness - Extremities Exam Extremities exam: Present: warm, radial pulses palpable and symetrical. Absent : calf tenderness, cyanotic, pedal edema - Neurological Exam Neurological exam: Present: alert, oriented X3, no focal deficits. Absent: pronater drift, facial droop, speech deficit - Skin Skin exam: Present: dry, intact Internal Medicine: Result - Labs CBC & Chem 7: 08/05/16 04:22 08/05/16 04:22 Labs: Short CBC 08/04/16 08/05/16 Range/Units 12:14 04:22 WBC 6.1 (4.3-11.1) K/mcL Hgb 10.1 L 9.4 L (11.5-15.4) g/dL Hct 30.8 L 27.8 L (35.3-44.9) % Plt Count 136 L (140-400) K/mcL Neutrophils # 3.9 (1.6-8.9) K/mcL BMP 08/05/16 04:22 Sodium 137 Potassium 2.8 L Chloride 103 Carbon Dioxide 25 BUN 6 L Creatinine 0.75 Glucose 85 Calcium 8.5 L Urine 08/05/16 Range/Units 10:03 Urine Color Yellow (Yellow) Urine Clarity Clear (Clear) Urine pH 6.0 (5.0-8.0) pH Units Ur Specific Henderson 1.008 L (1.010-1.025) Urine Protein Negative (Neg-Trace) mg/dL Urine Glucose (UA) Normal (Normal) mg/dL - ABG Interpretation ABG results: PT/INR, D-dimer PT 11.4 Seconds (9.4-12.1) 08/03/16 03:45 - VTE Reasons for not Prescribing Prophylaxis: Treatment not Indicated - Low risk for VTE Documentation of Mechanical Device: Graduated compression elastic hosiery Consult Discharge Plan - Plan Referrals: Dwain Erazo MD [Primary Care Provider] - 08/13/16 1:15 pm <Mino Morales - Last Filed: 08/05/16 17:37> Date of Encounter: 08/05/16 - Constitutional Vitals: Temp Pulse Resp BP Pulse Ox 97.9 F 65 16 156/66 97 08/05/16 15:45 08/05/16 15:45 08/05/16 15:45 08/05/16 15:45 08/05/16 15:45 Internal Medicine: Result - Labs CBC & Chem 7: 08/05/16 04:22 08/05/16 04:22 Labs: Short CBC 08/05/16 Range/Units 04:22 WBC 6.1 (4.3-11.1) K/mcL Hgb 9.4 L (11.5-15.4) g/dL Hct 27.8 L (35.3-44.9) % Plt Count 136 L (140-400) K/mcL Neutrophils # 3.9 (1.6-8.9) K/mcL BMP 08/05/16 04:22 Sodium 137 Potassium 2.8 L Chloride 103 Carbon Dioxide 25 BUN 6 L Creatinine 0.75 Glucose 85 Calcium 8.5 L Urine 08/05/16 Range/Units 10:03 Urine Color Yellow (Yellow) Urine Clarity Clear (Clear) Urine pH 6.0 (5.0-8.0) pH Units Ur Specific Henderson 1.008 L (1.010-1.025) Urine Protein Negative (Neg-Trace) mg/dL Urine Glucose (UA) Normal (Normal) mg/dL - ABG Interpretation ABG results: PT/INR, D-dimer PT 11.4 Seconds (9.4-12.1) 08/03/16 03:45 - Attending Attestation Ms. Prince was seen and examined rounds. I agree with the physical examination findings, assessment and plan as documented by the resident Dr. Wellington Peng. She will undergo endoscopic study today. We will follow up recommendations by gastroenterology. Monitor hemoglobin. Continue with IV antibiotics for now.
--- NOTE | 2016-08-05 12:56 | Anesthesia Evaluation PreOp ---
Date of Encounter: 08/05/16 Time of Encounter: 12:54 - Past History Planned Operation: cscope/acute anemia Cardiac History: HTN, Hyperlipidemia Pulmonary History: Denies Any Significant HX TALENT ACQUISITION SPECIALIST History: Denies Any Significant HX Other Medical History: Other (hiatal hernia) Anesthesia History: No Prior Anesthetic Complications, Past Anesthesia (olamide) Alcohol Use: none Drug use: none Medications and Allergies Aspirin [Lo-Dose Aspirin EC] 81 mg PO DAILY 08/03/16 [History] Cholecalciferol (D-3) [Vitamin D] 1,000 unit PO DAILY 08/03/16 [History] Cyclosporine [Restasis] 1 drop BOTH EYES BID 08/03/16 [History] Lisinopril-HCTZ 20-12.5 [Prinzide 20-12.5] 1 each PO DAILY 08/03/16 [History] Simvastatin [Zocor] 20 mg PO DAILY 08/03/16 [History] Vit A/C/E AC/Znox/Cupric Oxide [Eye Vitamin-Minerals Tablet] 1 each PO DAILY [History] Allergies Penicillins Allergy (Verified 08/03/16 10:58) Hives - Meds/Allergy Pre-op Review Medications Reviewed: Yes Allergies Reviewed: Yes Beta Blockers on Current Med List: No Anesthesia Results - Labs 08/05/16 04:22 08/05/16 04:22 Anesthesia Exam Vital Signs/O2 Sat/Glucose, Most Current Temp Pulse Resp BP Pulse Ox 08/05/16 10:48 97.4 F L 73 16 146/84 99 Height: 1.63 Weight: 59 NPO (# of Hours): >8 - HEENT Pupil (Motor): Pupils equal, EOMI Mallampati: II Teeth: Poor dentition Oral Opening: Greater than 3 - TALENT ACQUISITION SPECIALIST LOC: Oriented TALENT ACQUISITION SPECIALIST Motor: Normal RUE, Normal LUE, Normal RLE, Normal LLE, Normal Face TALENT ACQUISITION SPECIALIST Sensory: Normal: RUE, LUE, RLE, LLE, Face - Cardiac Rhythm: Regular Murmur: None - Pulmonary Breath Sounds: bilateral Clear Respiratory Effort: Symmetrical Anesthesia Assess/Plan ASA Score: 3 (age 86) Modified [place] Scale for Level of Consciousness: Cooperative, oriented, and tranquil Anesthetic Plan: MAC Monitoring Plan: Standard Monitors Recovery Plan: Other
[2016-08-05] MEDS ORDERED: 0.9 % Sodium Chloride 1,000 ML IVC SCH (13:15)
[2016-08-05] MEDS ORDERED: Propofol 500 MG/50 ML INFUS..BTL ONE (13:33)
[2016-08-06] MEDS: MetroNIDAZOLE 500 MG/100 ML 500 MG/100 ML BAG IVPB SCH ×2 (00:24→09:17)
[2016-08-06 05:28] LABS: Basophils % 0.5 %; Eosinophils # 0.2 K/mcL (0.0-0.6); Eosinophils % 4.3 %; Hematocrit 30.8 % (35.3-44.9); Hemoglobin 10.1 g/dL (11.5-15.4); Immature Granulocytes % 0.5 % (0-4); Lymphocytes % 24.5 %; Mean Corpuscular HGB Conc 32.8 g/dL (31.6-35.5); Mean Corpuscular Hemoglobin 30.5 pg (28.0-33.3); Mean Corpuscular Volume 93.1 fL (83.0-100.0); Mean Platelet Volume 10.6 fL (9.4-12.4); Monocytes # 0.5 K/mcL (0.0-1.3); Monocytes % 11.2 %; Neutrophils # 2.5 K/mcL (1.6-8.9); Platelet Count 149 K/mcL (140-400); Red Blood Count 3.31 M/mcL (3.82-4.97); Red Cell Distribution Width 14.6 % (11.5-14.5)
[2016-08-06 05:47] LABS: Alanine Aminotransferase 9 Units/L (0-55); Albumin 2.9 g/dL (3.5-5.0); Albumin/Globulin Ratio 1.2 (1.1-2.2); Alkaline Phosphatase 49 Units/L (38-126); Aspartate Amino Transferase 26 Units/L (5-34); BUN/Creatinine Ratio 7 (6-26); Bilirubin,Total 0.4 mg/dL (0.2-1.2); Blood Urea Nitrogen 6 mg/dL (7-20); Calcium 8.8 mg/dL (8.6-10.8); Carbon Dioxide 28 mEq/L (19-29); Chloride 103 mEq/L (98-109); Globulin 2.5 g/dL (2.4-3.5); Glucose 80 mg/dL (70-99); Osmolality,Calculated 283 (280-300); Potassium 3.4 mEq/L (3.5-4.5); Sodium 138 mEq/L (136-145); Total Protein 5.4 g/dL (6.0-8.3); eGFR For African Americans > 60 (> 60); eGFR For Non-African Americans > 60 (> 60)
[2016-08-06 05:52] LABS: BUN/Creatinine Ratio 9 (6-26); Blood Urea Nitrogen 7 mg/dL (7-20); Calcium 8.7 mg/dL (8.6-10.8); Carbon Dioxide 27 mEq/L (19-29); Chloride 103 mEq/L (98-109); Glucose 79 mg/dL (70-99); Osmolality,Calculated 283 (280-300); Potassium 3.4 mEq/L (3.5-4.5); Sodium 138 mEq/L (136-145); eGFR For African Americans > 60 (> 60); eGFR For Non-African Americans > 60 (> 60)
--- NOTE | 2016-08-06 08:20 | Discharge Summary ---
<Favian Peng - Last Filed: 08/06/16 13:09> Date of Encounter: 08/06/16 Time of Encounter: 08:19 - Discharge Diagnosis (1) Colitis, acute Priority: Primary Status: Acute (2) Lower gastrointestinal hemorrhage Priority: Primary Status: Acute (3) Constipation Priority: Secondary Status: Chronic Qualifiers: Constipation type: unspecified constipation type Qualified Code(s): K59.00 - Constipation, unspecified (4) Hypertension Priority: Secondary Status: Acute Qualifiers: Qualified Code(s): I10 - Essential (primary) hypertension (5) Hypokalemia Priority: Secondary Status: Acute (6) DVT prophylaxis Priority: Secondary Status: Acute - Discharge Medications Prescriptions: MetroNIDAZOLE [Flagyl] 500 mg PO TID 7 Days Omeprazole [PriLOSEC] 40 mg PO DAILY #14 cap Home Medications: Aspirin [Lo-Dose Aspirin EC] 81 mg PO DAILY 08/03/16 [History] Cholecalciferol (D-3) [Vitamin D] 1,000 unit PO DAILY 08/03/16 [History] Cyclosporine [Restasis] 1 drop BOTH EYES BID 08/03/16 [History] Lisinopril-HCTZ 20-12.5 [Prinzide 20-12.5] 1 each PO DAILY 08/03/16 [History] Simvastatin [Zocor] 20 mg PO DAILY 08/03/16 [History] Vit A/C/E AC/Znox/Cupric Oxide [Eye Vitamin-Minerals Tablet] 1 each PO DAILY [History] MetroNIDAZOLE [Flagyl] 500 mg PO TID 7 Days 08/06/16 [Rx] Omeprazole [PriLOSEC] 40 mg PO DAILY #14 cap 08/06/16 [Rx] Allergies/Adverse Reactions: Allergies Penicillins Allergy (Verified 08/03/16 10:58) Hives Date of admission: 08/03/16 06:16 Primary care physician: Dwain Erazo MD Consults: 08/03/16 07:00 Consult to Gastroenterology [CONS] Routine Consulting Provider: Gastroenterology [facility] Reason for Consult: stercoral colitis with lower GI bleeding Call Completed: No Discharging clinician: Favian Peng Anticipated date of discharge: 08/06/16 - Patient Status Disposition: Home, Self-Care Condition: Good Functional capacity at discharge: independent ambulation Overall status at discharge: patient is back to baseline - Discharge Instructions Instructions: Gastrointestinal Bleeding (DC), Ulcerative Colitis (DC), Chronic Hypertension (DC) Follow Up With: Dwain Erazo MD [Primary Care Provider] - 08/13/16 1:15 pm Additional Instructions: Follow-up with your primary care physician the next 3-5 days. Take medications as prescribed. - Diet and Activity Activity: increase activity as tolerated Diet: advance to your usual diet Hospital course: Ms. Prince is a 86 year old female history of constipation presented to [facility] with blood per rectum. She is admitted to the general medical floor and started on a PPI and metronidazole after CT scan the abdomen demonstrated some colitis. She remained stable throughout her inpatient stay. She was kept nothing by mouth over the first evening and provided bowel prep for colonoscopy. GI was consult and evaluated the patient on day 2. Blood per rectum had stopped by day 2 of her hospital stay. She remained in stable condition vitals were stable. Hemoglobin dropped from 11.6-9.4. Patient underwent colonoscopy on 08/05/2016 I demonstrated some sigmoid colon erythematous/inflamed mucosa. She also was found to have multiple small [place] diverticula within the sigmoid colon. She remained stable overnight after her colonoscopy with a hemoglobin of 10 point 1 in the morning. She was seen and evaluated patient bedside and deemed stable for discharge with close follow-up with her primary care physician. The discharge plan was discussed with Ms. Prince and she agreed with this plan. Prescription for omeprazole and metronidazole were provided to the patient at time of discharge. - Time Spent with Patient Total time spent providing and/or coordinating discharge services: - Constitutional Vitals: Temp Pulse Resp BP Pulse Ox 98.1 F 68 16 145/71 96 08/06/16 07:36 08/06/16 07:36 08/06/16 07:36 08/06/16 07:36 08/06/16 07:36 General appearance: Present: cooperative, A&O X 3, pleasant, no acute distress - Head Head exam: Present: atraumatic, normocephalic - Eye Eye exam: Present: PERRL, conjuntiva pink, sclera anicteric Pupils: Present: PERRL - Neck Neck exam general surgery: Present: supple, trachea midline. Absent: lymphadenopathy - Respiratory Respiratory exam: Present: CTAB. Absent: accessory muscle use, rales, rhonchi, wheezes - Cardiovascular Cardiovascular exam: Present: RRR, +S1, +S2. Absent: diastolic murmur, gallop, rubs, systolic murmur - GI/Abdominal GI/Abdominal exam: Present: normal bowel sounds, soft, no peritoneal signs. Absent: distended, tenderness - Extremities Exam Extremities exam: Present: warm, radial pulses palpable and symetrical. Absent : calf tenderness, cyanotic, pedal edema - Neurological Exam Neurological exam: Present: alert, CN II-XII intact, oriented X3, no focal deficits. Absent: pronater drift, facial droop, speech deficit - Psychiatric Psychiatric exam: Present: normal affect, normal mood - Skin Skin exam: Present: dry, intact - VTE Reasons for not Prescribing Prophylaxis: Treatment not Indicated - Low risk for VTE Documentation of Mechanical Device: Intermittent pneumatic compression device <Mino Morales - Last Filed: 08/06/16 17:31> Date of Encounter: 08/06/16 Date of admission: 08/03/16 06:16 Primary care physician: Dwain Erazo MD Consults: 08/03/16 07:00 Consult to Gastroenterology [CONS] Routine Consulting Provider: Gastroenterology Luisana Reason for Consult: stercoral colitis with lower GI bleeding Call Completed: No Hospital course: Ms. Prince is a 86 year old female - Time Spent with Patient Total time spent providing and/or coordinating discharge services: - Constitutional Vitals: Temp Pulse Resp BP Pulse Ox 97.5 F L 71 16 116/62 98 08/06/16 11:22 08/06/16 11:22 08/06/16 11:22 08/06/16 11:22 08/06/16 11:22 - Attending Attestation Patient seen and examined. Agree with assessment and plan as documented by the resident, Dr. Peng. Patient stable, colitis, will continue with antibiotics and discharge home today.
[2016-08-06] MEDS: Cholecalciferol (D-3) 1,000 UNIT TABLET PO SCH (09:16)
[2016-08-06] MEDS: Lisinopril-HCTZ 20-12.5mg TABLET PO SCH (09:16)
[2016-08-06] MEDS: [UNRECOGNIZED DRUG - OTHER] PO SCH (09:23)
[2016-08-06 11:22] VITALS: BP 116/62
[2016-08-06] MEDS ORDERED: *HR* Propofol 500 MG/50 ML BOTTLE IVC ONE (14:14)
== END 2016-08-06 14:15 | disposition home or self-care (01) ==
LOC: EMEROO 03:23 → 3ANU 03:23
PROVIDERS: ADMIT Family Medicine; ATTEND Internal Medicine
PROC: ENDOCBX (2016-08-05 14:20)

== ENCOUNTER 2017-10-16 17:08 | Observation (INO) ==
[2017-10-16 18:38] LABS: Bilirubin,Urine Negative (Negative); Blood,Urine Negative (Negative); Clarity,Urine Cloudy (Clear); Color,Urine Yellow (Yellow); Glucose,Urine (UA) Normal (Normal); Ketones,Urine 15 mg/dL (Negative); Leukocyte Esterase,Urine Small (Negative); Nitrite,Urine Negative (Negative); PH,Urine 7.5 pH Units (5.0-8.0); Protein,Urine 30 mg/dL (Neg-Trace); Specific Gravity,Urine 1.023 (1.010-1.025); Urobilinogen,Urine Normal (Normal)
[2017-10-16 18:40] LABS: Bacteria,Urine None Seen per hpf (None-Few); Hyaline Casts,Urine Few per lpf (None-Few); Squamous Epithelial Cell,Urine Many per lpf (None-Few); WBC,Urine 15-30 per hpf (0-3)
[2017-10-16 19:21] LABS: Basophils % 0.5 %; Eosinophils # 0.1 K/mcL (0.0-0.6); Hematocrit 36.6 % (35.3-44.9); Immature Granulocytes % 0.5 % (0-4); Lymphocytes % 16.1 %; Mean Corpuscular HGB Conc 32.8 g/dL (31.6-35.5); Mean Corpuscular Hemoglobin 30.5 pg (28.0-33.3); Mean Corpuscular Volume 93.1 fL (83.0-100.0); Mean Platelet Volume 10.2 fL (9.4-12.4); Monocytes # 0.5 K/mcL (0.0-1.3); Monocytes % 8.2 %; Neutrophils # 4.4 K/mcL (1.6-8.9); Platelet Count 172 K/mcL (140-400); Red Blood Count 3.93 M/mcL (3.82-4.97); Red Cell Distribution Width 14.8 % (11.5-14.5); Segmented Neutrophils % 73.7 %
[2017-10-16 19:41] LABS: Alanine Aminotransferase 8 Units/L (7-52); Albumin 4.2 g/dL (3.5-5.7); Albumin/Globulin Ratio 1.6 (1.1-2.2); Alkaline Phosphatase 71 Units/L (34-104); Amylase 50 Units/L (29-103); Aspartate Amino Transferase 18 Units/L (13-39); BUN/Creatinine Ratio 15 (6-26); Bilirubin,Direct 0.2 mg/dL (0.0-0.2); Bilirubin,Indirect 0.3 mg/dL (0.0-1.2); Bilirubin,Total 0.5 mg/dL (0.3-1.0); Blood Urea Nitrogen 12 mg/dL (8-23); Calcium 9.8 mg/dL (8.6-10.3); Carbon Dioxide 27 mEq/L (23-29); Chloride 103 mEq/L (98-107); Globulin 2.6 g/dL (2.4-3.5); Glucose 120 mg/dL (70-105); Lipase 26 Units/L (11-82); Osmolality,Calculated 283 (280-300); Sodium 136 mEq/L (136-145); Total Protein 6.8 g/dL (6.4-8.9); eGFR For African Americans > 60 (> 60); eGFR For Non-African Americans > 60 (> 60)
--- NOTE | 2017-10-16 21:49 | Emergency Department Note ---
Disposition Clinical Impression: Abdominal pain Qualifiers: Abdominal location: unspecified location Qualified Code(s): R10.9 - Unspecified abdominal pain Disposition: Admitted As Inpatient Condition: Good Referrals: Dwain Erazo MD [Primary Care Provider] - Forms: ED Satisfaction Letter, Work/School Release Time of Disposition: 23:35 General Adult HPI - General Chief complaint: ED Abdominal Pain Stated complaint: abd pain Time Seen by Provider: 10/16/17 21:20 Source: patient Limitations: no limitations Nursing Notes Reviewed: Yes Vital Signs Reviewed: Yes - History of Present Illness HPI Narrative: Patient is an 87-year-old female that presents the emergency department with abdominal pain. She states that this began this morning. Patient states that she has not had a bowel movement in approximately 2 days. States that she has not been able to pass gas today. She states that she normally passes gas regularly so this is abnormal for her. Patient also reports to be distended and bloated. She states that she has been having significant pain in her abdomen. He states that the pain is diffuse and does not radiate. Patient states that she does have a history of high blood pressure but has not been able take her blood pressure medications today and that is why her blood pressure is elevated. Pain Scale: 10 - Related Data Home Medications Medication Instructions Recorded Confirmed Aspirin [Lo-Dose Aspirin EC] 81 mg PO DAILY 08/03/16 08/03/16 Cholecalciferol (D-3) [Vitamin D] 1,000 unit PO DAILY 08/03/16 08/03/16 Cyclosporine [Restasis] 1 drop BOTH EYES BID 08/03/16 08/03/16 Lisinopril-HCTZ 20-12.5 [Prinzide 1 each PO DAILY 08/03/16 08/03/16 20-12.5] Simvastatin [Zocor] 20 mg PO DAILY 08/03/16 08/03/16 Vit A/C/E AC/Znox/Cupric Oxide 1 each PO DAILY 08/03/16 08/03/16 [Eye Vitamin-Minerals Tablet] Previous Rx's Medication Instructions Recorded Omeprazole [PriLOSEC] 40 mg PO DAILY #14 cap 08/06/16 metroNIDAZOLE [Flagyl] 500 mg PO TID 7 Days tablet 08/06/16 Allergies Allergy/AdvReac Type Severity Reaction Status Date / Time Penicillins Allergy Hives Verified 08/03/16 10:58 All systems ED: reviewed and negative except as stated. Constitutional: Denies: fever, chills Cardiovascular: Denies: chest pain Respiratory: Denies: dyspnea Gastrointestinal: Reports: abdominal pain, nausea, other. Denies: vomiting Genitourinary: Denies: urgency, dysuria, frequency, hematuria Past Medical History - Past Medical History Medical history: Reports: hyperlipidemia, hypertension, other Surgical history: Reports: hip replacement Psychiatric history: Reports: no psych history - Social History Smoking Status: Never smoker Smokeless Tobacco Status: No Alcohol use: Reports: none Drug use: Reports: none Physical Exam - General Limitations: no limitations General appearance: alert, in no apparent distress - Head Head exam: atraumatic, normocephalic - Eye Eye exam: Present: normal appearance, EOMI - Neck Neck exam: Present: normal inspection, full ROM, trachea midline - Respiratory Respiratory exam: Present: normal lung sounds bilaterally. Absent: respiratory distress, wheezes - Cardiovascular Cardiovascular exam: Present: regular rate, normal rhythm, normal heart sounds, +S1, +S2 - Abdominal Exam Abdominal exam: Present: soft, tenderness, normal bowel sounds Abdominal tenderness: Present: diffuse, moderate - Neurological Exam Neurological exam: Present: alert, oriented X3 - Psychiatric Psychiatric exam: Present: normal affect, normal mood - Skin Skin exam: Present: warm, dry, intact Course Vital Signs Temperature 98.6 F 10/16/17 17:09 Pulse Rate 95 10/16/17 17:09 Respiratory Rate 18 10/16/17 17:09 Blood Pressure 208/112 10/16/17 17:09 O2 Sat by Pulse Oximetry 96 10/16/17 17:09 Temperature 98.6 F 10/16/17 17:09 Pulse Rate 95 10/16/17 17:09 Respiratory Rate 18 10/16/17 17:09 Blood Pressure 208/112 10/16/17 17:09 O2 Sat by Pulse Oximetry 96 10/16/17 17:09 Oxygen Delivery Oxygen Delivery Room Air Medical Decision Making - MDM Narrative Medical decision making narrative: Due to the patient presenting with abdominal pain and lack of bowel movements and flatulence we will obtain a CBC, BMP, lipase, hepatic panel as well as a CT of the abdomen and pelvis to rule out possible bowel obstruction. CT of the abdomen and pelvis did not show an obstruction however there was possible evidence of colitis versus possible volvulus. We called and spoke with Dr. brown the surgeon and he was in agreement with the patient being seen tomorrow morning and did not feel that this was an emergency where he needed to see the patient tonight. The patient will be admitted to the hospitalist for further evaluation and management with a consult to Dr. brown. Patient's laboratory testing is unremarkable however the patient did have mildly elevated leukocyte esterase in her urine however she is asymptomatic and there are many windowsills in her urine specimen that this is likely contaminant we will not treat this patient. The patient will be admitted to the hospital this time for further evaluation and management. - Lab Data Lab results reviewed: Yes I reviewed the patient's lab results. Result diagrams: 10/16/17 17:12 10/16/17 17:12 Lab Results 10/16/17 10/16/17 10/16/17 Range/Units 17:12 17:12 17:34 WBC 6.0 (4.3-11.1) K/mcL RBC 3.93 (3.82-4.97) M/mcL Hgb 12.0 (11.5-15.4) g/dL Hct 36.6 (35.3-44.9) % MCV 93.1 (83.0-100.0) fL MCH 30.5 (28.0-33.3) pg MCHC 32.8 (31.6-35.5) g/dL RDW 14.8 H (11.5-14.5) % Plt Count 172 (140-400) K/mcL MPV 10.2 (9.4-12.4) fL Immature Gran % 0.5 (0-4) % Seg Neutrophils % 73.7 % Lymphocytes % 16.1 % Monocytes % 8.2 % Eosinophils % 1.0 % Basophils % 0.5 % Neutrophils # 4.4 (1.6-8.9) K/mcL Lymphocytes # 1.0 (0.6-4.6) K/mcL Monocytes # 0.5 (0.0-1.3) K/mcL Eosinophils # 0.1 (0.0-0.6) K/mcL Basophils # 0.0 (0.0-0.2) K/mcL Sodium 136 (136-145) mEq/L Potassium 4.0 (3.5-5.1) mEq/L Chloride 103 (98-107) mEq/L Carbon Dioxide 27 (23-29) mEq/L BUN 12 (8-23) mg/dL Creatinine 0.82 (0.60-1.20) mg/dL Est GFR ( Amer) > 60 (> 60) Est GFR (Non-Af Amer) > 60 (> 60) BUN/Creatinine Ratio 15 (6-26) Glucose 120 H (70-105) mg/dL Calculated Osmolality 283 (280-300) Calcium 9.8 (8.6-10.3) mg/dL Total Bilirubin 0.5 (0.3-1.0) mg/dL Direct Bilirubin 0.2 (0.0-0.2) mg/dL Indirect Bilirubin 0.3 (0.0-1.2) mg/dL AST 18 (13-39) Units/L ALT 8 (7-52) Units/L Alkaline Phosphatase 71 (34-104) Units/L Serum Total Protein 6.8 (6.4-8.9) g/dL Albumin 4.2 (3.5-5.7) g/dL Globulin 2.6 (2.4-3.5) g/dL Albumin/Globulin Ratio 1.6 (1.1-2.2) Amylase 50 (29-103) Units/L Lipase 26 (11-82) Units/L Urine Color Yellow (Yellow) Urine Clarity Cloudy A (Clear) Urine pH 7.5 (5.0-8.0) pH Units Ur Specific [place] 1.023 (1.010-1.025) Urine Protein 30 H (Neg-Trace) mg/dL Urine Glucose (UA) Normal (Normal) mg/dL Urine Ketones 15 H (Negative) mg/dL Urine Blood Negative (Negative) Urine Nitrite Negative (Negative) Urine Bilirubin Negative (Negative) Urine Urobilinogen Normal (Normal) mg/dL Ur Leukocyte Esterase Small H (Negative) Urine Microscopic RBC 5-15 H (0-3) per hpf Urine Microscopic WBC 15-30 H (0-3) per hpf Ur Squamous Epith Cells Many H (None-Few) per lpf Urine Bacteria None Seen (None-Few) per hpf Hyaline Casts Few (None-Few) per lpf Ur Culture Indicated? NO. (NO) - Radiology Data Radiology results reviewed: Yes I reviewed the patient's radiology results. Abdomen/Pelvis CT 10/16/17 21:37 IMPRESSION: Limited examination due to lack of contrast and artifact Hiatal hernia Small nodular density in the right posterior lung base. This is likely due to atelectasis. Low-density in the body of the pancreas, indeterminate. Slight prominence of the renal pelvis bilaterally. There is no stone in the ureters. Extensive diverticulosis in the distal colon. There is multifocal incomplete distention of the distal colon as well. This may be due to underdistention, however wall thickening and colitis would be difficult to exclude. There is a focally distended colonic loop in the midline lower abdomen. This may be due to additional redundancy of the colon. A developing volvulus is not excluded entirely. There are no other findings that would suggest volvulus at this time. There is no twisting of vascular structures. If The patient's symptoms continue, consider follow-up imaging. D/ / Jostin Bauer / Jostin Bauer Interpreting Provider: Jostin Bauer
[2017-10-16] MEDS ORDERED: 0.9 % Sodium Chloride 250 ML IVC ONE (23:22)
--- NOTE | 2017-10-16 23:40 | Emergency Department Note ---
Disposition Clinical Impression: Abdominal pain Qualifiers: Abdominal location: unspecified location Qualified Code(s): R10.9 - Unspecified abdominal pain Disposition: Admitted As Inpatient Referrals: Dwain Erazo MD [Primary Care Provider] - Forms: ED Satisfaction Letter, Work/School Release General Adult HPI - General Chief complaint: ED Abdominal Pain Stated complaint: abd pain Time Seen by Provider: 10/16/17 21:20 Source: patient Limitations: no limitations - History of Present Illness Pain Scale: 10 - Related Data Home Medications Medication Instructions Recorded Confirmed Aspirin [Lo-Dose Aspirin EC] 81 mg PO DAILY 08/03/16 08/03/16 Cholecalciferol (D-3) [Vitamin D] 1,000 unit PO DAILY 08/03/16 08/03/16 Cyclosporine [Restasis] 1 drop BOTH EYES BID 08/03/16 08/03/16 Lisinopril-HCTZ 20-12.5 [Prinzide 1 each PO DAILY 08/03/16 08/03/16 20-12.5] Simvastatin [Zocor] 20 mg PO DAILY 08/03/16 08/03/16 Vit A/C/E AC/Znox/Cupric Oxide 1 each PO DAILY 08/03/16 08/03/16 [Eye Vitamin-Minerals Tablet] Previous Rx's Medication Instructions Recorded Omeprazole [PriLOSEC] 40 mg PO DAILY #14 cap 08/06/16 metroNIDAZOLE [Flagyl] 500 mg PO TID 7 Days tablet 08/06/16 Allergies Allergy/AdvReac Type Severity Reaction Status Date / Time Penicillins Allergy Hives Verified 08/03/16 10:58 Constitutional: Denies: fever, chills Cardiovascular: Denies: chest pain Respiratory: Denies: dyspnea Gastrointestinal: Reports: abdominal pain, nausea, other. Denies: vomiting Genitourinary: Denies: urgency, dysuria, frequency, hematuria Past Medical History - Past Medical History Medical history: Reports: hyperlipidemia, hypertension, other Surgical history: Reports: hip replacement Psychiatric history: Reports: no psych history - Social History Smoking Status: Never smoker Smokeless Tobacco Status: No Alcohol use: Reports: none Drug use: Reports: none Physical Exam - General Limitations: no limitations General appearance: alert, in no apparent distress Course Vital Signs Temperature 98.6 F 10/16/17 17:09 Pulse Rate 95 10/16/17 17:09 Respiratory Rate 18 10/16/17 17:09 Blood Pressure 208/112 10/16/17 17:09 O2 Sat by Pulse Oximetry 96 10/16/17 17:09 Temperature 98.6 F 10/16/17 17:09 Pulse Rate 95 10/16/17 17:09 Respiratory Rate 18 10/16/17 17:09 Blood Pressure 208/112 10/16/17 17:09 O2 Sat by Pulse Oximetry 96 10/16/17 17:09 Oxygen Delivery Oxygen Delivery Room Air Medical Decision Making - Lab Data Result diagrams: 10/16/17 17:12 10/16/17 17:12 Lab Results 10/16/17 10/16/17 10/16/17 Range/Units 17:12 17:12 17:34 WBC 6.0 (4.3-11.1) K/mcL RBC 3.93 (3.82-4.97) M/mcL Hgb 12.0 (11.5-15.4) g/dL Hct 36.6 (35.3-44.9) % MCV 93.1 (83.0-100.0) fL MCH 30.5 (28.0-33.3) pg MCHC 32.8 (31.6-35.5) g/dL RDW 14.8 H (11.5-14.5) % Plt Count 172 (140-400) K/mcL MPV 10.2 (9.4-12.4) fL Immature Gran % 0.5 (0-4) % Seg Neutrophils % 73.7 % Lymphocytes % 16.1 % Monocytes % 8.2 % Eosinophils % 1.0 % Basophils % 0.5 % Neutrophils # 4.4 (1.6-8.9) K/mcL Lymphocytes # 1.0 (0.6-4.6) K/mcL Monocytes # 0.5 (0.0-1.3) K/mcL Eosinophils # 0.1 (0.0-0.6) K/mcL Basophils # 0.0 (0.0-0.2) K/mcL Sodium 136 (136-145) mEq/L Potassium 4.0 (3.5-5.1) mEq/L Chloride 103 (98-107) mEq/L Carbon Dioxide 27 (23-29) mEq/L BUN 12 (8-23) mg/dL Creatinine 0.82 (0.60-1.20) mg/dL Est GFR ( Amer) > 60 (> 60) Est GFR (Non-Af Amer) > 60 (> 60) BUN/Creatinine Ratio 15 (6-26) Glucose 120 H (70-105) mg/dL Calculated Osmolality 283 (280-300) Calcium 9.8 (8.6-10.3) mg/dL Total Bilirubin 0.5 (0.3-1.0) mg/dL Direct Bilirubin 0.2 (0.0-0.2) mg/dL Indirect Bilirubin 0.3 (0.0-1.2) mg/dL AST 18 (13-39) Units/L ALT 8 (7-52) Units/L Alkaline Phosphatase 71 (34-104) Units/L Serum Total Protein 6.8 (6.4-8.9) g/dL Albumin 4.2 (3.5-5.7) g/dL Globulin 2.6 (2.4-3.5) g/dL Albumin/Globulin Ratio 1.6 (1.1-2.2) Amylase 50 (29-103) Units/L Lipase 26 (11-82) Units/L Urine Color Yellow (Yellow) Urine Clarity Cloudy A (Clear) Urine pH 7.5 (5.0-8.0) pH Units Ur Specific [place] 1.023 (1.010-1.025) Urine Protein 30 H (Neg-Trace) mg/dL Urine Glucose (UA) Normal (Normal) mg/dL Urine Ketones 15 H (Negative) mg/dL Urine Blood Negative (Negative) Urine Nitrite Negative (Negative) Urine Bilirubin Negative (Negative) Urine Urobilinogen Normal (Normal) mg/dL Ur Leukocyte Esterase Small H (Negative) Urine Microscopic RBC 5-15 H (0-3) per hpf Urine Microscopic WBC 15-30 H (0-3) per hpf Ur Squamous Epith Cells Many H (None-Few) per lpf Urine Bacteria None Seen (None-Few) per hpf Hyaline Casts Few (None-Few) per lpf Ur Culture Indicated? NO. (NO) Attestation Statement - Attestation Attestation: I examined this patient and my medical decision-making was reviewed with the Resident Physician. I agree with the documented findings, disposition and treatment plan as described except to the extent set forth below. Abdomen is tender but not rigid. She is comfortable until I palpate her abdomen. No distention. Bowel sounds present. CT scan does not show obstruction or perforation, suggestive of possible colitis or a possible early volvulus. The patient requested Dr. ferguson. I spoke with Dr. Ferguson by phone , he agreed to see the patient. We are in agreement that the patient at this point does not require an emergent surgical evaluation, and that evaluation by him in the morning is appropriate. Her blood pressure is elevated, she has no evidence of acute end organ damage, treatment is neither required nor warranted.
[2017-10-16] MEDS ORDERED: Ketamine *HR* 12 MG in 0.9 % Sodium Chloride 100 ML IVPB ONE (23:46)
[2017-10-17] MEDS ORDERED: Naloxone 0.4 MG/ML INJ IVP PRN (01:24)
[2017-10-17] MEDS ORDERED: OXYCODONE Oral CONC 10 MG/0.5 ML ORAL.SYG SL PRN (01:24)
[2017-10-17] MEDS ORDERED: Ondansetron 4 MG/2 ML VIAL IVP PRN (01:24)
--- NOTE | 2017-10-17 01:33 | Internal Med History&Physical ---
Date of Encounter: 10/17/17 Time of Encounter: 01:00 Internal Medicine - H&P: HPI Chief complaint: Abdominal pain Admitted From: Home Plans for Post Hospital Care: Home History of present illness: Ms. Prince is a 87 year old female present to ER for abdominal pain since this morning. Past medical history is significant for hyperlipidemia, hypertension, hiatal hernia, S/P appendectomy. 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 Patient has nausea but no vomiting. Patient denies diarrhea. Patient has no bowel movement for 2 days. Patient stopped passing gas for a while but had gas passed 30 minutes prior to I see her. Patient denies fever. Patient said the abdominal pain has significantly improved now to about 2/10. In the emergency room, CT abdominal has been done which shows suspect early volvulus. Surgical consult was called by ER and patient was admitted for further management. Past Med Surg Social Fam HX - Past Medical History Medical history: hyperlipidemia, hypertension, other Psychiatric history: no psych history - Past Surgical History Surgical History: hip replacement - Social History Smoking Status: Never smoker Smokeless Tobacco Status: No Alcohol use: none Drug use: none - Family History Mother Adopted: No Living Status: Hx Family Cardiac Disorders: Yes (HTN) Hx Family Respiratory Disorders: No Hx Family Cancer: No Hx Family GI Disorders: No Hx Family Endocrine Disorder: No Hx Family Neuromuscular Disorders: No Hx Family Neurologic Disorders: No Hx Family HEENT Disorders: No Hx Family Autoimmune Disorders: No Internal Medicine - H&P: Meds Aspirin [Lo-Dose Aspirin EC] 81 mg PO DAILY 08/03/16 [History] Cholecalciferol (D-3) [Vitamin D] 1,000 unit PO DAILY 08/03/16 [History] Cyclosporine [Restasis] 1 drop BOTH EYES BID 08/03/16 [History] Lisinopril-HCTZ 20-12.5 [Prinzide 20-12.5] 1 each PO DAILY 08/03/16 [History] Simvastatin [Zocor] 20 mg PO DAILY 08/03/16 [History] Vit A/C/E AC/Znox/Cupric Oxide [Eye Vitamin-Minerals Tablet] 1 each PO DAILY [History] Omeprazole [PriLOSEC] 40 mg PO DAILY #14 cap 08/06/16 [Rx] metroNIDAZOLE [Flagyl] 500 mg PO TID 7 Days tablet 08/06/16 [Rx] 3 Allergy/AdvReac Type Severity Reaction Status Date / Time Penicillins Allergy Hives Verified 08/03/16 10:58 All Systems PM: A 10-system review of systems was performed and is negative for pertinent findings except as documented above in the HPI. - Constitutional Vitals: Temp Pulse Resp BP Pulse Ox 98.3 F 86 16 185/91 97 10/17/17 01:06 10/17/17 01:06 10/17/17 01:06 10/17/17 01:06 10/17/17 01:06 General appearance: Present: A&O X 3, no acute distress, answers questions appropriately - Head Head exam: Present: atraumatic, normocephalic - Eye Eye exam: Present: PERRL, conjuntiva pink, sclera anicteric Pupils: Present: PERRL - Neck Neck exam general surgery: Present: supple, trachea midline. Absent: lymphadenopathy - Respiratory Respiratory exam: Present: CTAB. Absent: accessory muscle use, rales, rhonchi, wheezes - Cardiovascular Cardiovascular exam: Present: RRR, +S1, +S2. Absent: diastolic murmur, gallop, rubs, systolic murmur - GI/Abdominal GI/Abdominal exam: Present: normal bowel sounds, soft, tenderness (Mild to moderate tenderness on right upper quadrant and right lower quadrant, no rebound , mild guarding.), no peritoneal signs. Absent: distended - Extremities Exam Extremities exam: Present: warm, radial pulses palpable and symmetrical. Absent : calf tenderness, cyanotic, pedal edema - Neurological Exam Neurological exam: Present: CN II-XII intact, oriented X3, no focal deficits. Absent: pronater drift, facial droop, speech deficit - Skin Skin exam: Present: dry, intact Internal Med - H&P Results - Labs CBC & Chem 7: 10/16/17 17:12 10/16/17 17:12 - Assessment and plan (1) Abdominal pain Current Visit: Yes Status: Acute Assessment and plan: Patient has generalized abdominal pain, mainly located on right side. Etiology is undetermined. Symptoms has improved. CT abdominal shows suspect early developing volvulus. Surgical consult was called. - Place patient on closely monitoring - Keep nothing by mouth, IV fluid - Pain management and symptomatic treatment of nausea Qualifiers: Abdominal location: generalized Qualified Code(s): R10.84 - Generalized abdominal pain (2) Hypertension Current Visit: No Status: Acute Assessment and plan: Patient's hypertension medication was on hold because of nothing by mouth. Place patient on hydralazine IV when necessary. Qualifiers: Hypertension type: essential hypertension Qualified Code(s): I10 - Essential (primary) hypertension - Time Spent With Patient Total time spent is greater than 50% in coordination of care (as documented) at patient's floor/unit and/or counseling patient: 40 minutes Greater than 35 minutes
[2017-10-17] MEDS: 0.9 % Sodium Chloride 1,000 ML IVC SCH ×4 (03:11→22:00)
[2017-10-17 04:53] LABS: Basophils % 0.4 %; Eosinophils % 0.8 %; Hematocrit 33.2 % (35.3-44.9); Hemoglobin 10.9 g/dL (11.5-15.4); Immature Granulocytes % 0.2 % (0-4); Mean Corpuscular HGB Conc 32.8 g/dL (31.6-35.5); Mean Corpuscular Hemoglobin 30.2 pg (28.0-33.3); Mean Platelet Volume 10.3 fL (9.4-12.4); Monocytes % 10.9 %; Platelet Count 147 K/mcL (140-400); Red Blood Count 3.61 M/mcL (3.82-4.97); Red Cell Distribution Width 14.8 % (11.5-14.5); Segmented Neutrophils % 67.7 %
[2017-10-17 04:54] LABS: Monocytes # 0.5 K/mcL (0.0-1.3); Neutrophils # 3.3 K/mcL (1.6-8.9)
[2017-10-17 05:00] LABS: Prothrombin Time 11.1 Seconds (9.4-12.1)
[2017-10-17 05:18] LABS: BUN/Creatinine Ratio 15 (6-26); Blood Urea Nitrogen 11 mg/dL (8-23); Carbon Dioxide 28 mEq/L (23-29); Chloride 106 mEq/L (98-107); Glucose 94 mg/dL (70-105); Osmolality,Calculated 287 (280-300); Potassium 3.6 mEq/L (3.5-5.1); Sodium 139 mEq/L (136-145); eGFR For African Americans > 60 (> 60); eGFR For Non-African Americans > 60 (> 60)
--- NOTE | 2017-10-17 08:30 | General Surgery Consult Note ---
Date of Encounter: 10/17/17 Time of Encounter: 07:55 History of Present Illness Reason for consult: abdominal pain Requesting physician: Surinder Trimble History of present illness: 87-year-old female referred for further evaluation and possible treatment new- onset abdominal pain radiating around to the left flank. The patient describes an abrupt onset of abdominal pain described as very severe prompting her to present to [facility] emergency room at for further evaluation and treatment. The patient had been unable to move her bowels or passed gas for the last [address] of the abdomen/pelvis described redundancy of the distal colon. Numerous diverticula with incomplete distention of this the sigmoid colon and rectum are described. There was no free pelvic fluid or hematoma. No pathologically enlarged lymph nodes. Multifocal incomplete distention of the distal colon is noted which may be due to under distention. Wall thickening and the presence of colitis would be difficult to exclude due to the multiple focal incomplete distention of the bowel. A focally distended colonic loops in the midline lower abdomen corresponding to the patient's description of her abdominal pain is also noted raising the possibility of a developing volvulus could not be entirely excluded. It is primarily for this finding that surgery has been consulted. It is noted that there is no twisting of the vascular structures to corroborate the presence of volvulus. This morning on my presentation to the bedside, the acute symptoms have resolved, the patient is feeling much improved. Past medical history is notable for hypertension, hyperlipidemia, diverticulosis. It appears that a similar episode occurred in July 2016. At the time the patient underwent colonoscopy which demonstrated severe thickening of a long segment of the left colon approximately 30-50 cm from the anal verge. Biopsies of this area showed focally ulcerated colonic mucosa focal surface exudate and mild abdominal inflammation and congestion. These findings are suggestive of early ischemic colitis but resolved without further incident. Surgical history includes colonoscopy in July 2016; right total hip replacement; remote history of appendectomy Allergies: Penicillin Medications: Aspirin 81 mg by mouth daily Vitamin D3 1000 units by mouth daily Ibuprofen 400 mg by mouth as needed Lisinopril with hydrochlorothiazide 20/12.5 one by mouth daily Simvastatin 20 mg by mouth daily Multivitamin 1 by mouth daily Restasis 1 drop each eye once daily Physical examination: Robust woman who appears younger than her stated age. She is in no acute distress. The patient has remained afebrile since admission; currently 98.1. Pulse 75 , respirations 16, blood pressure 170/77 Skin: Warm, no obvious jaundice Lungs: Clear; no obvious wheezes or rales. No abdominal pain and deep inspiration Cardiac: Regular rate, no appreciable murmur Abdomen: Soft, nontender. No appreciable masses. No rebound. Active bowel sounds. Extremities: No obvious clubbing, cyanosis, or edema. Labs: Admission white count 6.0, hemoglobin 12.0 with hematocrit 36.6. Repeat this morning- white count 4.9, hemoglobin 10.9, hematocrit 33.2. Differential is remained within normal limits. I's, BUN, creatinine of also remained normal. Impression: A 87-year-old patient with abrupt onset of abdominal pain. Those acute symptoms have resolved. The patient is currently in no distress. It appears that the patient had a similar episode in July 2016. Colonoscopy at the time was suggestive of early ischemic colitis. The patient has extensive diverticulosis with prior CT showing wall thickening involving a long segment of the colon. The current CT was limited by incomplete distention of the bowel as well as of a hip prosthesis causing fragmentation of the images. It does not appear the patient had a volvulus but this possibility cannot be entirely excluded. The patient demonstrates mild anemia - likely due to fluid resuscitation in the ED and following admission. Review of the patient's historical data shows anemia dating back to at least November 2016. Recommendations: monitor for recurrent abd pain. No surgical intervention planned at this time. Allow clear liquids, if no recurrent pain may advance diet as tolerated. Recommend high-fiber diet with plenty of fresh fruits and attachments once regular diet has been resumed. If no recurrent symptoms in the next 24 hours, may discharge home, with outpatient follow-up in my office in approximately one week. Thank you for this consultation, I will follow along with you. Past Med Surg Social Fam HX - Past Medical History Medical history: hyperlipidemia, hypertension, other Psychiatric history: no psych history - Past Surgical History Surgical History: hip replacement - Social History Smoking Status: Never smoker Smokeless Tobacco Status: No Alcohol use: none Drug use: none - Family History Mother Adopted: No Living Status: Hx Family Cardiac Disorders: Yes (HTN) Hx Family Respiratory Disorders: No Hx Family Cancer: No Hx Family GI Disorders: No Hx Family Endocrine Disorder: No Hx Family Neuromuscular Disorders: No Hx Family Neurologic Disorders: No Hx Family HEENT Disorders: No Hx Family Autoimmune Disorders: No Medications and Allergies Aspirin [Lo-Dose Aspirin EC] 81 mg PO DAILY 08/03/16 [History] Cholecalciferol (D-3) [Vitamin D] 1,000 unit PO DAILY 08/03/16 [History] Cyclosporine [Restasis] 1 drop BOTH EYES BID 08/03/16 [History] Lisinopril-HCTZ 20-12.5 [Prinzide 20-12.5] 1 each PO DAILY 08/03/16 [History] Simvastatin [Zocor] 20 mg PO DAILY 08/03/16 [History] Vit A/C/E AC/Znox/Cupric Oxide [Eye Vitamin-Minerals Tablet] 1 each PO DAILY [History] Omeprazole [PriLOSEC] 40 mg PO DAILY #14 cap 08/06/16 [Rx] metroNIDAZOLE [Flagyl] 500 mg PO TID 7 Days tablet 08/06/16 [Rx] 3 Allergy/AdvReac Type Severity Reaction Status Date / Time Penicillins Allergy Hives Verified 08/03/16 10:58 Review of Systems All systems PM: The remainder of the systems were reviewed and are negative General Surgery Exam Initial Vital Signs Temp Pulse Resp BP Pulse Ox 98.6 F 95 18 208/112 96 10/16/17 17:09 10/16/17 17:09 10/16/17 17:09 10/16/17 17:09 10/16/17 17:09 Exam Initial Vital Signs Temp Pulse Resp BP Pulse Ox 98.6 F 95 18 208/112 96 10/16/17 17:09 10/16/17 17:09 10/16/17 17:09 10/16/17 17:09 10/16/17 17:09 Results - Labs 10/17/17 04:21 10/17/17 04:21 Abnormal lab results RBC 3.61 M/mcL (3.82-4.97) L 10/17/17 04:21 Hgb 10.9 g/dL (11.5-15.4) L 10/17/17 04:21 Hct 33.2 % (35.3-44.9) L 10/17/17 04:21 RDW 14.8 % (11.5-14.5) H 10/17/17 04:21 Urine Clarity Cloudy (Clear) A 10/16/17 17:34 Urine Protein 30 mg/dL (Neg-Trace) H 10/16/17 17:34 Urine Ketones 15 mg/dL (Negative) H 10/16/17 17:34 Ur Leukocyte Esterase Small (Negative) H 10/16/17 17:34 Urine Microscopic RBC 5-15 per hpf (0-3) H 10/16/17 17:34 Urine Microscopic WBC 15-30 per hpf (0-3) H 10/16/17 17:34 Ur Squamous Epith Cells Many per lpf (None-Few) H 10/16/17 17:34 Diabetes panel 10/17/17 Range/Units 04:21 Sodium 139 (136-145) mEq/L Potassium 3.6 (3.5-5.1) mEq/L Chloride 106 (98-107) mEq/L Carbon Dioxide 28 (23-29) mEq/L BUN 11 (8-23) mg/dL Creatinine 0.73 (0.60-1.20) mg/dL Glucose 94 (70-105) mg/dL Calcium 9.0 (8.6-10.3) mg/dL Calcium panel 10/17/17 Range/Units 04:21 Calcium 9.0 (8.6-10.3) mg/dL Pituitary panel 10/17/17 Range/Units 04:21 Sodium 139 (136-145) mEq/L Potassium 3.6 (3.5-5.1) mEq/L Chloride 106 (98-107) mEq/L Carbon Dioxide 28 (23-29) mEq/L BUN 11 (8-23) mg/dL Creatinine 0.73 (0.60-1.20) mg/dL Glucose 94 (70-105) mg/dL Calcium 9.0 (8.6-10.3) mg/dL Adrenal panel 10/17/17 Range/Units 04:21 Sodium 139 (136-145) mEq/L Potassium 3.6 (3.5-5.1) mEq/L Chloride 106 (98-107) mEq/L Carbon Dioxide 28 (23-29) mEq/L BUN 11 (8-23) mg/dL Creatinine 0.73 (0.60-1.20) mg/dL Glucose 94 (70-105) mg/dL Calcium 9.0 (8.6-10.3) mg/dL All other labs normal. Consult Discharge Plan - Plan Referrals: Dwain Erazo MD [Primary Care Provider] -
--- NOTE | 2017-10-17 13:21 | Internal Med Progress Note ---
Date of Encounter: 10/17/17 Time of Encounter: 12:05 - Assessment and plan (1) Hypertension Current Visit: Yes Status: Acute Assessment and plan: Chronic. Home medications were stopped due to NPO status. Since she is able to advance her diet, will start home medications. Continue to monitor labs. Hydralazine 10mg IV prn. Qualifiers: Hypertension type: essential hypertension Qualified Code(s): I10 - Essential (primary) hypertension (2) Abdominal pain Current Visit: Yes Status: Acute Assessment and plan: Pt reported sudden onset, diffuse, sharp abdominal pain that she rated 8/10. Pt reports that she had diarrhea, but denies n/v, fever, or chills. No BM x 2 days prior to admission. By the time she was admitted, the pain had improved and she rated it a 2/10. CT abdomen pelvis without contrast showed hiatal hernia nodular density in the right posterior lung base, likely due to atelectasis. Distal: Showed extensive diverticulosis, multifocal incomplete distention of the distal colon wall, as well. This may be due to underdistention, however, wall thickening colitis could be difficult to exclude. There is a focally distended colonic loops in the midline lower abdomen, this may be due to additional redundancy in the colon and a developing volvulus is not excluded entirely. No other findings that would indicate volvulus, there is no twisting of vascular structures. Patient has been evaluated by Dr. Ferguson. I appreciate his recommendations and consultation. Per his note: Patient had similar episode in July,. At that time she had a colonoscopy which showed severe thickening of a long segment of colon. Biopsies were suggestive of early ischemic colitis, but resolved without further incident. By assessment this a.m, pt denies abdominal pain. Abd is soft, non-tender, no rebound tenderness, BS x 4. She states that she is tolerating po well and would like to advance her diet. If pt remains stable and pain-free, she will most likely be discharged in the a.m. with PCP follow up. Abdomen/Pelvis CT 10/16/17 21:37 IMPRESSION: Limited examination due to lack of contrast and artifact Hiatal hernia Small nodular density in the right posterior lung base. This is likely due to atelectasis. Low-density in the body of the pancreas, indeterminate. Slight prominence of the renal pelvis bilaterally. There is no stone in the ureters. Extensive diverticulosis in the distal colon. There is multifocal incomplete distention of the distal colon as well. This may be due to underdistention, however wall thickening and colitis would be difficult to exclude. There is a focally distended colonic loop in the midline lower abdomen. This may be due to additional redundancy of the colon. A developing volvulus is not excluded entirely. There are no other findings that would suggest volvulus at this time. There is no twisting of vascular structures. If The patient's symptoms continue, consider follow-up imaging. D/ / Jostin Bauer / Jostin Bauer Interpreting Provider: Jostin Bauer Qualifiers: Abdominal location: generalized Qualified Code(s): R10.84 - Generalized abdominal pain - Time Spent With Patient Total time spent is greater than 50% in coordination of care (as documented) at patient's floor/unit and/or counseling patient: less than 15 minutes - Subjective Interval history: Pt was seen and assessed at 1205. She is pleasant, alert, awake, oriented x 3. She denies headache, n/v/d, abdominal pain, chest pain, dizziness, chest pain, or SOB. She states that she is feeling better and is hungry, states that she will be able to tolerate advancing her diet. If she remains stable and pain-free , she will most likely discharge tomorrow. - Constitutional Vitals: Temp Pulse Resp BP Pulse Ox 98.1 F 64 16 178/76 97 10/17/17 07:09 10/17/17 11:31 10/17/17 11:31 10/17/17 11:31 10/17/17 11:31 General appearance: Present: cooperative, A&O X 3, pleasant, no acute distress, answers questions appropriately - Head Head exam: Present: atraumatic, normal inspection, normocephalic - Eye Eye exam: Present: normal appearance, conjuntiva pink, sclera anicteric - Neck Neck exam general surgery: Present: normal inspection, supple, trachea midline. Absent: lymphadenopathy, tenderness - Respiratory Respiratory exam: Present: CTAB. Absent: accessory muscle use, rales, respiratory distress, rhonchi, wheezes - Cardiovascular Cardiovascular exam: Present: RRR, +S1, +S2. Absent: diastolic murmur, gallop, rubs, systolic murmur - GI/Abdominal GI/Abdominal exam: Present: normal bowel sounds, soft. Absent: distended, hepatomegaly, rebound, tenderness - Extremities Exam Extremities exam: Present: normal capillary refill, normal inspection, warm, radial pulses palpable and symmetrical. Absent: calf tenderness, cyanotic, pedal edema, tenderness - Neurological Exam Neurological exam: Present: alert, oriented X3, no focal deficits. Absent: altered, motor sensory deficit, facial droop, speech deficit - Skin Skin exam: Present: dry, intact, normal color, warm. Absent: rash Internal Medicine: Result - Labs CBC & Chem 7: 10/17/17 04:21 10/17/17 04:21 Labs: Short CBC 10/17/17 Range/Units 04:21 WBC 4.9 (4.3-11.1) K/mcL Hgb 10.9 L (11.5-15.4) g/dL Hct 33.2 L (35.3-44.9) % Plt Count 147 (140-400) K/mcL Neutrophils # 3.3 (1.6-8.9) K/mcL BMP 10/17/17 04:21 Sodium 139 Potassium 3.6 Chloride 106 Carbon Dioxide 28 BUN 11 Creatinine 0.73 Glucose 94 Calcium 9.0 - ABG Interpretation ABG results: PT/INR, D-dimer PT 11.1 Seconds (9.4-12.1) 10/17/17 04:21 Consult Discharge Plan - Plan Referrals: Dwain Erazo MD [Primary Care Provider] -
[2017-10-17] MEDS: Aspirin Enteric Coated 81 MG Tablet PO SCH (17:36)
[2017-10-17] MEDS: Lisinopril-HCTZ 20-12.5mg TABLET PO SCH (17:36)
[2017-10-18] MEDS: Lisinopril-HCTZ 20-12.5mg TABLET PO SCH (08:55)
[2017-10-18] MEDS: Aspirin Enteric Coated 81 MG Tablet PO SCH (08:55)
[2017-10-18] MEDS ORDERED: Cholecalciferol (D-3) 1,000 UNIT TABLET PO SCH (09:00)
[2017-10-18] MEDS ORDERED: Multivit/Ca/Min/Fe/FA 1 TAB TABLET PO SCH (09:00)
[2017-10-18 10:40] VITALS: BP 121/69
--- NOTE | 2017-10-18 12:32 | Discharge Summary ---
- NOTES TO OUTPATIENT PROVIDER Notes to Outpatient Provider: Pt was admitted for abdominal pain, resolved without intervention. Pt will have follow up in Dr. Ferguson's office in the next week. Date of Encounter: 10/18/17 Time of Encounter: 09:05 - Discharge Diagnosis (1) Hypertension Priority: Secondary Status: Chronic Comments: Chronic. Well controlled. Continue home medications. Qualifiers: Hypertension type: essential hypertension Qualified Code(s): I10 - Essential (primary) hypertension (2) Abdominal pain Priority: Primary Status: Resolved Comments: Pt denies abdominal pain, nausea, vomiting, diarrhea, or constipation. She denies urinary symptoms. Urine with small amount leukocyte esterase, many squamous epithelial cells and no bacteria. Abd soft, flat, non-tender. Patient labs and vitals are stable. She is able to tolerate a regular diet without pain, n/v/d. Pt will follow up with Dr. Ferguson in one week per his recommendation. Qualifiers: Abdominal location: generalized Qualified Code(s): R10.84 - Generalized abdominal pain Hospital course: Ms. Prince is a 87 year old female with medical history including hypertension. Patient presented to the emergency department with sudden onset sharp, constant abdominal pain that resolved spontaneously. CT abdomen and pelvis without contrast showed a hiatal hernia, extensive diverticulosis, colon wall thickening and colitis could not be excluded. There was a focally distended colonic loop in the metro lower abdomen, may be due to additional redundancy of the colon and a developing volvulus could not be excluded entirely. There is no twisting and vascular structures. She denies nausea, vomiting, diarrhea, fever, chills, rigors. Physical exam remains unremarkable today. She continues to deny abdominal pain, abdomen is flat, soft, nontender to palpation. She denies any urinary symptoms. She was evaluated by surgery, no intervention was necessary. Agents labs and vitals are stable. She is able to tolerate a regular diet without complications. She will follow up with Dr. Ferguson in one week in his office. Patient is stable and appropriate for discharge. Discharge discussed with: patient, nurse - Time Spent with Patient Total time spent providing and/or coordinating discharge services: Less than 30 minutes - Discharge Medications Home Medications: Aspirin [Lo-Dose Aspirin EC] 81 mg PO DAILY 08/03/16 [History] Cholecalciferol (D-3) [Vitamin D] 1,000 unit PO DAILY 08/03/16 [History] Lisinopril-HCTZ 20-12.5 [Prinzide 20-12.5] 1 each PO DAILY 08/03/16 [History] Simvastatin [Zocor] 20 mg PO DAILY 08/03/16 [History] Vit A/C/E AC/Znox/Cupric Oxide [Eye Vitamin-Minerals Tablet] 1 each PO DAILY [History] Omeprazole [PriLOSEC] 40 mg PO DAILY #14 cap 08/06/16 [Rx] Allergies/Adverse Reactions: 3 Allergy/AdvReac Type Severity Reaction Status Date / Time Penicillins Allergy Hives Verified 08/03/16 10:58 Date of admission: 10/17/17 00:20 Primary care physician: Dwain Erazo MD Discharging clinician: Cely Loyola Anticipated date of discharge: 10/18/17 - Constitutional Vitals: Temp Pulse Resp BP Pulse Ox 98.4 F 70 16 121/69 95 10/18/17 10:39 10/18/17 10:39 10/18/17 10:39 10/18/17 10:39 10/18/17 10:39 General appearance: Present: cooperative, A&O X 3, pleasant, no acute distress, answers questions appropriately - Head Head exam: Present: atraumatic, normal inspection, normocephalic - Eye Eye exam: Present: normal appearance, conjuntiva pink, sclera anicteric - Neck Neck exam general surgery: Present: supple, trachea midline. Absent: lymphadenopathy - Respiratory Respiratory exam: Present: CTAB. Absent: accessory muscle use, chest wall tenderness, decreased breath sounds, rales, respiratory distress, rhonchi, wheezes - Cardiovascular Cardiovascular exam: Present: RRR, +S1, +S2. Absent: diastolic murmur, gallop, rubs, systolic murmur - GI/Abdominal GI/Abdominal exam: Present: normal bowel sounds, soft. Absent: distended, firm , hepatomegaly, rebound, rigid, tenderness - Extremities Exam Extremities exam: Present: normal capillary refill, normal inspection, warm, radial pulses palpable and symmetrical. Absent: calf tenderness, cyanotic, pedal edema, tenderness - Neurological Exam Neurological exam: Present: alert, oriented X3, no focal deficits. Absent: facial droop, speech deficit - Skin Skin exam: Present: dry, intact, normal color, warm. Absent: rash - Patient Status Disposition: Home, Self-Care Condition: Good Functional capacity at discharge: independent ambulation Overall status at discharge: patient is back to baseline - Discharge Instructions Follow Up With: Dwain Erazo MD [Primary Care Provider] - Uzair Ferguson MD [Non-Partnered Physician] - 10/22/17 (Dr. Ferguson would like to see you on 10/22/17. Please call office on Thursday to get appointment time.) Additional Instructions: Please follow up with Dr. Ferguson as scheduled. Please follow up with Dr. Erazo as scheduled. Return to the ER as needed for any other problems or concerns, or if your symptoms return or are worse. Take your normal medications as directed. Return to your normal diet and activities as tolerated. - Diet and Activity Activity: increase activity as tolerated Diet: advance to your usual diet
== END 2017-10-18 13:27 | disposition home or self-care (01) ==
LOC: EMEROO 17:08 → 3BNU 17:08
PROVIDERS: ADMIT Internal Medicine; ATTEND Registered Nurse